=== PATIENT | female | born 1950 | race Caucasian/White ===

== ENCOUNTER → 2016-09-14 | Outpatient (CLI) | payer MEDICARE, OTHER ==
[~2016-09-14] MED LIST: (NONE)2.5 MG PO; ACID REDUCER20 MG PO; ALBUTEROL17 GM INH; ALPRAZOLAM0.25 MG PO; ALPRAZOLAM0.5 MG PO; ALPRAZOLAM1 MG PO; AMITIZA24 MCG PO; BIOTIN5 M2 PO; BREO ELLIPTA 11 EACH INH; CALCIUM 1,0001 EACH PO; DURAGESIC25 MCG EXT; FERROUS SULFATE PO; FISH OIL 1,2001 EAC3 PO; FOLIC ACID PO; GARCINIA CAMBO1 EACH PO; GNP B-COMPLEX1 EACH PO; HCTZ LISINOPRIL PO; HYDROCODON-ACE1 EAC5 PO; HYDROCODON-ACE1 EAC9 PO; HYDROMORPHONE ER8 MG PO; IMODIUM2 MG PO; IRON325 ( 65 ) PO; IRON325 ( 651 PO; LASIX PO; LASIX20 MG PO; LETROZOLE2.5 MG PO; LISINOPRIL-HCTZ1 T21 PO; LOMOTIL WHITE2.5 M1 PO; MAXILIFE RICE 51 CAP PO; METFORMIN PO; NEURONTIN800 MG PO; OMEPRAZOLE20 M1 PO; ONDANSETRON ODT4 MG PO; OXYCODON HCL-1 UDTA1 PO; PEPCID AC20 M2 PO; PHENERGAN25 M1 PO; PLAQUENIL200 MG PO; PREDNISONE PO; PREDNISONE10 M1; PREDNISONE2.5 MG PO; ROBAXIN PO; SPIRONOLACTONE50 MG PO; TRAZODONE HCL100 MG PO; VITAL-D RX TABL1 TAB PO; VITAMIN C500 M1 PO; VITAMIN D35000 UNI1 PO; VITAMIN E400 UNI4 PO; ZANAFLEX PO; ZANAFLEX4 M1 PO; ZOFRAN8 MG PO; ZOLOFT50 MG PO
--- NOTE | ~2016-09-14 | CT55 ---
[facility] A Service of [facility] & [facility] RADIOLOGY TEXT RESULTS PATIENT: MARIE ALEXANDRE LOCATION: CCAT : 49 UNIT #: [id number] AGE: [address]: Neil Butcher MD SEX: F ORDER DR: [id number] [facility] [address] [place], [place] [address] [id number] O MR#: [id number] Acc #: [id number] NAME: MARIE ALEXANDRE : 1950 SEX: F STUDY DATE/TIME: 09/14/2016 15:48 UNIT: CCAT ROOM: STUDY DESCRIPTION: CT Chest W Con Attending Physician: Neil Butcher M.D. Referring Physician: Neil Butcher M.D. Ordering Physician: Neil Butcher M.D. Primary Care Physician: Carlos Ruiz M.D. MEDICAL IMAGING REPORT This report is preliminary unless electronic signature is present EXAM CT of the chest with IV contrast media HISTORY Left breast cancer. Known metastatic disease. Observation and followup of a malignant process. TECHNIQUE Transaxial imaging of the chest was performed with IV contrast media. This CT exam was performed with one or more of the following radiation dose reduction techniques: automatic exposure control, adjustment of mA and/or kV according to patient size, and iterative reconstruction. COMPARISON Last study of 01/10/2016 FINDINGS Scans through the lungs show a 9.0 mm right upper lobe nodule, unchanged. Peripheral left upper lobe nodule measures 6.0 mm compared with 4.0 mm on the last study. The lingular nodule measures 7.0 mm, unchanged. The nodule in the left costophrenic sulcus measures approximately 8.0 mm. It appears slightly larger than it did on the last study. Scans through the mediastinum show a right infrahilar node measuring 1.7 x 1.2, previously measuring 1.0 x 1.0 cm. The patient has had a left mastectomy. There are hypodense lesions within the liver consistent with metastatic disease. No mass identified in the right breast and there is no lymphadenopathy. Bone windows show postsurgical changes in the left shoulder. There is a malignant lesion in the T9 vertebral body with a compression fracture. Compression is about 10%. No retropulsion is seen. IMPRESSION 1. Postop changes left mastectomy. [facility] A Service of [facility] RADIOLOGY TEXT RESULTS PATIENT: MARIE ALEXANDRE LOCATION: [facility] : 49 UNIT #: [id number] AGE: [address]: Neil Butcher MD SEX: F ORDER DR: 2. Multiple small nodules in the lungs, a few of which have increased slightly in size although the majority are stable. 3. Increasing size right infrahilar node now 1.7 compared with 1.0 cm on the last study 4. Pathologic fracture of T9 with about 10% loss of vertebral body height. 5. Liver metastasis. The largest of which is just under the dome of the right hemidiaphragm. Dictated by... Yandel Barbour M.D. THIS IS AN ELECTRONICALLY VERIFIED REPORT Yandel Barbour M.D. at 09/18/2016 5:10 PM Jocelyn TD: 09/15/2016 08:42 JOB #: [id number] MEDICAL IMAGING REPORT COPY
--- NOTE | ~2016-09-14 | CT2 ---
[facility] A Service of [facility] & [facility] RADIOLOGY TEXT RESULTS PATIENT: MARIE ALEXANDRE LOCATION: CCAT : 49 UNIT #: [id number] AGE: [address]: Neil Butcher MD SEX: F ORDER DR: [id number] [facility] [address] [place], [place] [address] [id number] O MR#: [id number] Acc #: [id number] NAME: MARIE ALEXANDRE : 1950 SEX: F STUDY DATE/TIME: 09/14/2016 14:40 UNIT: CCAT ROOM: STUDY DESCRIPTION: CT Abd and Pelv W Cont Attending Physician: Neil Butcher M.D. Referring Physician: Neil Butcher M.D. Ordering Physician: Neil Butcher M.D. Primary Care Physician: Carlos Ruiz M.D. MEDICAL IMAGING REPORT This report is preliminary unless electronic signature is present EXAM CT of the abdomen and pelvis with IV contrast media 09/14/2016 HISTORY Breast cancer, left breast. Metastatic disease. Followup and observation of a malignant process. TECHNIQUE Axial imaging of the abdomen and pelvis was obtained with IV contrast media. This CT exam was performed with one or more of the following radiation dose reduction techniques: automatic exposure control, adjustment of mA and/or kV according to patient size, and iterative reconstruction. COMPARISON STUDIES Scan is directly compared to the studies of December 2015. FINDINGS There is a low-density mass identified within the right lobe of the liver measuring at least 3.2 x 3.1 cm. High under the right hemidiaphragm there is a 5.6 cm hypodense mass present. There is also some low density seen more peripherally associated with some capsular retraction. The significance of this finding is unclear. The low-density area certainly has increased in size significantly since the last exam. There are gallstones in the gallbladder. Pancreas is atrophic. Adrenal glands are not enlarged. There is splenomegaly. The patient has no evidence of gastric wall thickening. There is a small cyst arising peripherally from the right kidney. No dilated or thickened loops of bowel are identified. There is extensive sigmoid diverticulosis without diverticulitis. Uterus is normal in size. There are no adnexal masses or fluid collections. Advanced degenerative changes are present in the lumbar spine. There is a sclerotic lesion in the L3 vertebral body measuring about 8 mm in STS. [facility] A Service of [facility] & [facility] RADIOLOGY TEXT RESULTS PATIENT: MARIE ALEXANDRE [facility] UNIT #: [id number] AGE: [address]: Neil Butcher MD SEX: F ORDER DR: shelly. On the uppermost images there appears to be a destructive lesion involving the T9 vertebral body as well. CONCLUSION 1. Development of metastatic disease within the liver. The largest lesion high under the right hemidiaphragm measuring 5.6 cm. The second lesion is seen inferiorly measuring 3.2 x 3.1 cm. There is a third area of hypodensity that is associated with capsular retraction which could in fact represent a treated metastasis. 2. Cholelithiasis. 3. Advanced multilevel degenerative disc disease. 4. Sclerotic lesion measuring 8 mm in the L3 vertebral body likely a metastasis. Additionally there appears to be a metastatic focus in the T7 vertebral body at the margin of the film. 5. Extensive diverticulosis. Dictated by... Yandel Barbour M.D. THIS IS AN ELECTRONICALLY VERIFIED REPORT Yandel Barbour M.D. at 09/18/2016 5:10 PM ELIEL/janie TD: 09/15/2016 08:30 JOB #: [id number] MEDICAL IMAGING REPORT COPY
[2016-09-14 15:20] LABS: POC - CREATININE 1.05 mg/dL (0.44-1.03)
== END | disposition home or self-care (01) ==
LOC: CCAT 14:27
PROVIDERS: Internal Medicine Hematology & Oncology
DX: C79.51 Secondary malignant neoplasm of bone (principal); M06.9 Rheumatoid arthritis, unspecified; D70.8 Other neutropenia; C50.412 Malignant neoplasm of upper-outer quadrant of left female breast; K80.20 Calculus of gallbladder without cholecystitis without obstruction; K57.90 Diverticulosis of intestine, part unspecified, without perforation or abscess without bleeding; M51.36 Other intervertebral disc degeneration, lumbar region
CPT/HCPCS: 71260; 74177; 82565; Q9967

== ENCOUNTER → 2016-10-26 | Outpatient (CLI) | payer MEDICARE, OTHER ==
--- NOTE | ~2016-10-26 | CT57 ---
[facility] A Service of [facility] & [facility] RADIOLOGY TEXT RESULTS PATIENT: MARIE ALEXANDRE LOCATION: CCAT : 49 UNIT #: [id number] AGE: [address]: Neil Butcher MD SEX: F ORDER DR: [id number] [facility] [address] [place], [place] [address] [id number] O MR#: [id number] Acc #: [id number] NAME: MARIE ALEXANDRE : 1950 SEX: F STUDY DATE/TIME: 10/26/2016 16:37 UNIT: CCAT ROOM: STUDY DESCRIPTION: CT Chest Wo Cont Attending Physician: Neil Butcher M.D. Referring Physician: Neil Butcher M.D. Ordering Physician: Neil Butcher M.D. Primary Care Physician: Carlos Ruiz M.D. MEDICAL IMAGING REPORT This report is preliminary unless electronic signature is present EXAM CT of the chest. HISTORY Malignant neoplasm of upper outer quadrant of left female breast secondary malignant neoplasm of bone rheumatoid arthritis unspecified other neutropenia bronchial asthma x1 month. Short of air, coughing x1 month lung, liver and spine mets from breast cancer. Possible pneumonia. Hypertension, diabetes. TECHNIQUE This CT exam was performed with one or more of the following radiation dose reduction techniques: automatic control, adjustment of mA and/or kV according to patient size, and iterative reconstruction. FINDINGS CT of the chest performed without administration of intravenous contrast. Comparison 09/14/2016. Study somewhat limited in the absence of intravascular contrast. Patient is noted have diminished renal function with eGFR 45 and creatinine 1.26. Visualized thyroid unremarkable. No axillary adenopathy. Status post left mastectomy. The previously seen left infrahilar node measuring about 1.7 cm x 1.1 cm on prior examination is less conspicuous on current noncontrast enhanced study. Given infrahilar contour, then node is favored to be stable to decreased in size measuring perhaps 1.5 x 1.2 cm in diameter. No indications of new mediastinal or hilar adenopathy. Densely calcified aortopulmonary window nodes unchanged. Heart is normal in size. No pleural effusions. There is a metastatic lesion in the hepatic dome measuring approximately 5.2 cm x 5.1 cm x 2.9 cm. Probably increased in size from prior study when it measured about 4.8 cm x 4.6 cm x 2.4 cm. There appears to be metastatic disease elsewhere in the right hepatic lobe more pronounced than on prior study with a second dominant lesion measuring approximately 3.3 cm in diameter on current study, previously about 2.8 cm. The gallbladder [facility] A Service of [facility] RADIOLOGY TEXT RESULTS PATIENT: MARIE ALEXANDRE LOCATION: [facility] : 49 UNIT #: [id number] AGE: [address]: Neil Butcher MD SEX: F ORDER DR: contains a radiolucent gallstones but otherwise is unremarkable. No biliary ductal dilatation. Spleen, visualized portions of pancreas, adrenal glands, kidneys show partial visualization of isodense 1 cm nodule posterior mid to upper right kidney. Exact etiology unclear. Probably a hyperdense cyst. Best further evaluated with ultrasound. The esophagus, stomach, visualized small bowel and colon unremarkable. PULMONARY PARENCHYMA: The pulmonary parenchyma shows multiple bilateral pulmonary nodules favored to represent metastatic disease. No clearly new nodules. Many of these show no change. There is a right apical nodule which currently measures about 9 mm in diameter, previously 9 mm x 6 mm. It may have increased in size slightly in 1 dimension. There is a 9 mm nodule in the inferior lingular segment previously measured as 7 mm. The lungs show hazy ground-glass densities in the bilateral perihilar and infrahilar regions more conspicuous on the left than the right. This suggests mild bilateral pneumonitis. No areas of dense airspace disease are seen. Followup to resolution is recommended. Patient is status post orthopedic intervention left humerus. Streak artifact from orthopedic fixation screws. Multifocal osseous metastatic disease in spine does not appear significantly changed. Compression deformity T9 vertebral body likely related to underlying metastatic disease, unchanged. Degenerative changes in spine. IMPRESSION 1. Mild hazy ground-glass densities in bilateral perihilar/infrahilar regions more pronounced in the infrahilar regions and greater on the left than right. These are mild in degree and are favored to represent mild pneumonitis. There is no dense airspace disease. No pleural effusion or pneumothorax. 2. Multiple bilateral pulmonary nodules. Favored to be metastatic in nature. No new pulmonary nodules are seen compared to September 14, 2016. A right apical 9 mm nodule may have increased very slightly in 1 dimension compared to prior study. A 9 mm inferior lingular segment nodule may have increased very slightly in size from prior study. 3. No new hepatic metastatic lesions are seen. Preexisting metastatic lesions have increased in size. See bilingual call center representative measurements in body of report. 4. Osseous metastatic disease appears stable. Compression deformity T9 vertebral body stable. No new osseous metastatic lesions are seen. 5. Probably stable to marginally decreased in size right inferior hilar lymph node. No new enlarged lymph nodes are seen. 6. Postoperative changes left mastectomy. See remainder of incidental findings in body of report above. Dictated by... Yandel Awad M.D. [facility]. [facility] A Service of [facility] RADIOLOGY TEXT RESULTS PATIENT: MARIE ALEXANDRE LOCATION: [facility] : 49 UNIT #: [id number] AGE: [address]: Neil Butcher MD SEX: F ORDER DR: THIS IS AN ELECTRONICALLY VERIFIED REPORT Yandel Awad M.D. at 10/31/2016 10:29 AM ZARA/fred TD: 10/26/2016 18:29 JOB #: [id number] MEDICAL IMAGING REPORT Page 1 of 1 COPY
[2016-10-26 17:50] LABS: POC - CREATININE 1.26 mg/dL (0.44-1.03)
== END | disposition home or self-care (01) ==
LOC: CCAT 15:19
PROVIDERS: Internal Medicine Hematology & Oncology
DX: C50.412 Malignant neoplasm of upper-outer quadrant of left female breast (principal); C79.51 Secondary malignant neoplasm of bone; M06.9 Rheumatoid arthritis, unspecified; D70.8 Other neutropenia; R91.8 Other nonspecific abnormal finding of lung field; C78.7 Secondary malignant neoplasm of liver and intrahepatic bile duct; Z90.12 Acquired absence of left breast and nipple
CPT/HCPCS: 71250; 82565

== ENCOUNTER 2017-01-08 15:26 | Inpatient (IN) | payer MEDICARE, OTHER ==
--- NOTE | ~2017-01-08 | CR72 ---
[facility] A Service of [facility] & [facility] RADIOLOGY TEXT RESULTS PATIENT: MARIE ALEXANDRE LOCATION: [facility] 317- : [birth year] UNIT #: [id number] AGE: [address]: Neil Butcher MD SEX: F ORDER DR: [id number] [facility] [address] [place], [place] [address] [id number] I MR#: [id number] Acc #: [id number] NAME: MARIE ALEXANDRE. : 1950 SEX: F STUDY DATE/TIME: 01/11/2017 12:58 UNIT: A U ROOM: [facility] STUDY DESCRIPTION: CR Chest Single View Portable Attending Physician: Neil Butcher M.D. Referring Physician: Neil Butcher M.D. Ordering Physician: Venkat Brown M.D. Primary Care Physician: Carlos Ruiz M.D. MEDICAL IMAGING REPORT This report is preliminary unless electronic signature is present EXAM Chest portable, 01/11/2017 12:58 hours HISTORY 66-year-old with history of breast cancer, postop PleurX catheter insertion today. COMPARISON 01/11/2017 at 07:17 hours FINDINGS Single portable upright view of the chest demonstrates lower lung volumes than on the earlier film. The heart size is enlarged but felt unchanged. There is perihilar and basilar vascular crowding. There appears to be a medial pneumothorax on the right. It is difficult to discriminate a percutaneous catheter but there may be a faintly seen percutaneous drain in the medial right hemithorax with tip terminating in the right superior paramediastinal region. No definite residual pleural fluid. IMPRESSION It appears there is decrease in right pleural fluid. There is lucency in the right paramediastinal region and the right medial cardiophrenic angle region which could represent a small pneumothorax. It is difficult to clearly define a percutaneous drain or catheter. There are ECG leads coiled over the chest. Question if faintly seen vertically oriented tube medially with tip terminating in the right superior paramediastinal region. Dictated by... Jovana M. Claudia, M.D. THIS IS AN ELECTRONICALLY VERIFIED REPORT Jovana Taylor M.D. at 01/12/2017 9:23 AM ARSHM/mindy [facility]. [facility] A Service of [facility] RADIOLOGY TEXT RESULTS PATIENT: MARIE ALEXANDRE LOCATION: [facility] 317-01 : [birth year] UNIT #: [id number] AGE: [address]: Neil Butcher MD SEX: F ORDER DR: TD: 01/11/2017 14:44 JOB #: [id number] MEDICAL IMAGING REPORT Page 1 of 1 COPY
--- NOTE | ~2017-01-08 | HP ---
Unit #: [id number] #: [id number] Patient: MARIE CHRISTY [id number] [address] [place], [place] [address] [id number] I MR#: [id number] NAME: MARIE CHRISTY. ROOM: 317 Age: 66 Sex: F Admission Date: 01/10/2017 : 1950 Attending Physician: Neil Butcher M.D. Referring Physician: Neil Butcher M.D. Primary Care Physician: Carlos Ruiz M.D. HISTORY AND PHYSICAL CHIEF COMPLAINT Admitted from the office with shortness of breathing. HISTORY OF PRESENT ILLNESS Miss Marie Christy is 66 years old with a history of metastatic breast cancer. Her cousin called me up to say that Miss Christy was having great difficulty in breathing and felt that she would even from inability to get her breath. She was asked to come to the office to be evaluated, which she did. She was also scheduled to receive a Faslodex injection today. Miss Christy tells me the past week she has had progressive shortness of breathing associated with inability to get her breath. She has had no change in cough pattern, no hemoptysis, or any significant change in chest pain. No history of prior blood clots. In the office she was found to be visibly short of breath. The plan is for admission and planned to be admitted. PAST MEDICAL HISTORY 1. Longstanding rheumatoid arthritis. 2. Chronic liver disease with biopsy proven cirrhosis. 3. Hypercholesterolemia. 4. Type 2 diabetes mellitus. 5. Breast cancer diagnosed 05/26/2013 when she underwent a left modified radical mastectomy with reconstruction at [facility]. Pathology revealed invasive ductal carcinoma grade III with major tumor measuring 3.7 cm. One out of five axillary lymph nodes was positive with metastatic carcinoma. ER was 94% positive. PA was 27% positive. Ki-67 was 29%. HER2 negative. She was staged pathologic, was a PT2, PN1 stage IIB. Postop course was complicated by wound healing following which she had four cycles of chemotherapy with Taxotere any Cytoxan with adjuvant chemotherapy complicated by neutropenia. She thereafter was changed to tamoxifen followed by Arimidex. On 09/07/2014 workup of back pain revealed a large bony metastasis measuring 6.5 cm in the sacrum which was treated with radiation therapy followed by initiation of Faslodex and Xgeva and with subsequent progressive disease stage II . PAST SURGICAL HISTORY Mastectomy as discussed. FAMILY HISTORY Notable for type 2 diabetes, atherosclerotic heart disease and hypertension. Unit #: [id number] #: [id number] Patient: MARIE CHRISTY SOCIAL HISTORY Quit smoking multiple years ago, does not drink any alcohol, she is single, . She has one son. REVIEW OF SYSTEMS Fourteen-point review of systems was taken: CONSTITUTIONAL: Fatigue, weakness. EYES: Negative. EARS/NOSE/MOUTH/THROAT: Negative. CARDIOVASCULAR: Negative. RESPIRATORY: As discussed. GASTROINTESTINAL: Negative. GENITOURINARY: Negative. NEUROLOGIC: Negative. MUSCULOSKELETAL: Negative. SKIN: Negative. PHYSICAL EXAMINATION GENERAL APPEARANCE: Elderly woman who appears in moderate distress secondary to difficulty breathing. She is awake, alert and oriented x3. VITAL SIGNS: Pulse rate is 114, pulse ox 95, blood pressure 119/64, temperature is 37.2, weight is 107.8 kg with a BMI of 40.8. HEENT: Exam shows pupils are equal, react well to light. Mucous membranes slightly dry. Mild pallor. No icterus. NECK: No adenopathy, JVD or thyromegaly. CARDIOVASCULAR SYSTEM: First and second heart sounds are heard with mild tachycardia. LUNGS: Chest expansion is symmetric. Scattered wheezes. ABDOMEN: Soft, nontender. Bowel sounds are present. No organomegaly. EXTREMITIES: Warm with trace edema. Pulses are well fed. NEUROLOGIC: She is awake, alert and oriented x3 without any focal findings. SKIN: Negative. PSYCHIATRIC: Normal affect. MUSCULOSKELETAL: Negative. DIAGNOSTIC STUDIES LABORATORY: Labs pending. ASSESSMENT AND PLAN Miss Marie Christy is 66 years old with a history of metastatic breast cancer, who will be admitted to observation telemetry for shortness of breathing. Given her obesity and metastatic breast cancer acute pulmonary embolism is a possibility and will plan to get a CT scan of the chest to be done without contrast as well as a V/Q scan in view of chronic kidney disease stage 3 which will not permit administer contrast. Will pretreat with prophylactic dose of Lovenox currently while awaiting the results of the V/Q scan. Will consult Dr. Kip Moreno of pulmonary to evaluate her shortness of breathing. In addition she may have sleep apnea which may require to be treated. She will be started on oxygen and nebulized bronchodilators as well as get a BNP, procalcitonin level and based up on the CT scans will plan to start on IV antibiotics for exacerbation of COPD. Plans were discussed in detail with Miss Christy. Unit #: [id number] #: [id number] Patient: MARIE CHRISTY Dictated by Dilshad Larsen/emily TD: 01/11/2017 21:42 JOB #: [id number] HISTORY AND PHYSICAL Page 1 of 1 X Neil Butcher MD X HISTORY AND PHYSICAL
--- NOTE | ~2017-01-08 | CO ---
Unit #: [id number] #: [id number] Patient: MARIE ALEXANDRE [id number] [address] [place], [place] [address] [id number] I MR#: [id number] NAME: MARIE ALEXANDRE ROOM: [facility] Age: 66 Sex: F Admission Date: 01/08/2017 : 1950 Attending Physician: Neil Butcher M.D. Primary Care Physician: Carlos Ruiz M.D. Consultation Date: 01/09/2017 CONSULTATION REPORT REASON FOR CONSULTATION Elevated heart rate. 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 She denies ever having a myocardial infarction or history of a cardiac catheterization. The patient does have hypertension, hyperlipidemia, GERD, depression, and degenerative disk disease. In 2012, she was diagnosed with breast cancer, now she has mets to the liver, lungs, and bone. Her last radiation was one month ago. She is a nonsmoker. Patient presented to [facility] with complaints of shortness of air on exertion. She denies any history of chest pain. She is round to have an elevated D-dimer and ultimately a right pleural effusion. Oncology is following and has ordered a thoracentesis. Cardiology has been consulted for heart rate 90s to 120s. EKG shows sinus tachycardia. Again, patient denies any chest pain. PAST MEDICAL HISTORY 1. Primary breast cancer diagnosed in 2012, now with metastasis to the liver, lungs, and bone with last radiation one month ago. 2. Hypertension. 3. Hyperlipidemia. 4. GERD. 5. Depression. 6. Degenerative disk disease. 7. Spinal stenosis. 8. Nonsmoker. ALLERGIES Codeine, naproxen, atorvastatin. HOME MEDICATIONS 1. Letrozole 2.5 mg p.o. daily. 2. Trazodone 100 mg p.o. at bedtime. 3. Pepcid AC 20 mg p.o. daily. 4. Zoloft 100 mg p.o. daily. 5. Neurontin 800 mg p.o. b.i.d. 6. Omeprazole 20 mg p.o. b.i.d. 7. Zofran 8 mg p.o. three times daily p.r.n. 8. Spironolactone 50 mg p.o. daily. 9. Prednisone 2.5 mg p.o. at bedtime. 10. Zanaflex 4 mg p.o. three times daily. 11. Lasix 20 mg p.o. daily. 12. Xanax 0.5 mg p.o. three times daily. Unit #: [id number] #: [id number] Patient: MARIE ALEXANDRE 13. Hydrocodone/acetaminophen 10/325 mg one tab p.o. every six hours. FAMILY HISTORY Patient states that her father had a myocardial infarction and history of CABG. SOCIAL HISTORY Patient states that she did quit smoking approximately 30 years ago. She denies any alcohol or illicit drug abuse. REVIEW OF SYSTEMS A 10-point review of systems has been done and is considered otherwise negative unless indicated in the HPI. PHYSICAL EXAMINATION GENERAL: Patient is awake and alert. VITAL SIGNS: Temperature is 98.2, heart rate 73, respirations 16, blood pressure 92/54, and she is oxygenating 97%. HEENT: Head is atraumatic, normocephalic. Pupils equal, round, and reactive to light. Extraocular movements are intact. No drainage from ears or nares. NECK: Supple. Trachea is midline. No thyromegaly or lymphadenopathy is appreciated. CHEST: Lungs are diminished bilaterally with crackles on the right. CARDIOVASCULAR: S1, S2. Regular rate and rhythm. No murmurs, rubs, or gallops are appreciated. ABDOMEN: Soft, nontender, nondistended. Bowel sounds are positive all four quadrants. SKIN: Appears to be warm, dry, intact without any unusual rashes or lesions. EXTREMITIES: No clubbing or cyanosis. She does have mild bilateral lower extremity edema. NEUROLOGIC: Patient is alert and oriented x3. She is pleasant, conversant. No focal deficits. DIAGNOSTIC STUDIES LABORATORY: White blood cells 1.2, hemoglobin 8.9, hematocrit 27.4, platelets 125,000. Sodium 137, potassium 3.9, chloride 101, CO2 of 28, BUN 11, creatinine 1, glucose 168. IMAGING: V/Q scan is pending. CT of the chest without contrast is pending. Chest x-ray shows right pleural effusion. CARDIOVASCULAR: Telemetry strips show findings consistent with sinus tachycardia. ASSESSMENT 1. Sinus tachycardia. 2. Breast cancer with metastases. 3. Hypertension. 4. Hyperlipidemia. 5. Gastroesophageal reflux disease. 6. Depression. 7. Reformed tobaccoism. Unit #: [id number] #: [id number] Patient: MARIE ALEXANDRE PLAN At this time, will obtain an EKG now. I have discussed with Dr. Sahu and will check a 2D echocardiogram, BMP, magnesium, TSH, troponin, lipid panel in the morning. The patient is to have a thoracentesis and we will follow along. Dictated by... Dara Barry A.P.R.N. for Gladys Sahu M.D. AM/telma TD: 01/09/2017 12:31 JOB #: [id number] CONSULTATION REPORT Page 1 of 1 X Dara Barry [employer] X CONSULTATION REPORT
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
--- NOTE | ~2017-01-08 | CO ---
Unit #: [id number] #: [id number] Patient: MARIE ALEXANDRE [id number] [address] [place], [place] [address] [id number] I MR#: [id number] NAME: MARIE ALEXANDRE. ROOM: [facility] Age: 66 Sex: F Admission Date: 01/10/2017 : 1950 Attending Physician: Neil Butcher M.D. Primary Care Physician: Carlos Ruiz M.D. Consultation Date: 01/10/2017 CONSULTATION REPORT REASON FOR CONSULTATION Concerning a malignant right pleural effusion. HISTORY OF PRESENT ILLNESS The patient is a 66-year-old white female, who was diagnosed of having breast carcinoma back in 2012. She now has metastatic disease to the bone, liver, and lungs. The patient presented to [place] on 01/09/2017 with increased shortness of breath and was found to have a right pleural effusion. A right thoracentesis was performed with the pathology on the fluid returning as positive for malignant cells. We were consulted at this time to consider placement of a PleurX catheter. PAST MEDICAL HISTORY The patient is allergic to codeine, naproxen, and atorvastatin. She has a history of hypertension, hyperlipidemia, gastroesophageal reflux disease, depression, degenerative disk disease, and spinal stenosis. SOCIAL HISTORY The patient stopped smoking about 30 years ago. She denies any alcohol use or illicit drug abuse. HOME MEDICATIONS Included letrozole 2.5 mg p.o. daily, trazodone 100 mg p.o. q.h.s., Pepcid 20 mg p.o. daily, Zoloft 100 mg p.o. daily, Neurontin 800 mg p.o. b.i.d., omeprazole 20 mg p.o. b.i.d., Zofran 8 mg p.o. t.i.d. p.r.n., spironolactone 50 mg p.o. daily, prednisone 2.5 mg p.o. q.h.s., Zanaflex 4 mg p.o. t.i.d., Lasix 20 mg p.o. daily, Xanax 0.5 mg p.o. t.i.d., [place] 10 mg/325 mg one tablet p.o. q.6 hours p.r.n. for pain. REVIEW OF SYSTEMS Essentially negative except for those things stated in the present illness and past history. PHYSICAL EXAMINATION VITAL SIGNS: The patient's temperature is 98, the pulse is 88, respirations 18, and blood pressure 109/69. GENERAL: The patient is somewhat hoarse. HEAD, EARS, EYES, NOSE, AND THROAT: Normocephalic without lesions. The pupils are equally round and reactive to light. Extraocular movements are full. NECK: Supple without adenopathy. LUNGS: Rhonchi and wheeze bilaterally. The patient also has decreased breath sounds at the right base. HEART: Regular rhythm without murmurs. Unit #: [id number] #: [id number] Patient: MARIE ALEXANDRE ABDOMEN: Soft and nontender without masses and with good bowel sounds. EXTREMITIES: The patient has some mild bilateral lower extremity edema. There is no clubbing or cyanosis. NEUROLOGIC: The patient is oriented x3. There are no focal neurologic deficits on exam. IMPRESSION Metastatic breast carcinoma with a malignant right pleural effusion. PLAN Plan to proceed with insertion of a right PleurX catheter in the operating room tomorrow. Dictated by... Dilshad Amado/juanita TD: 01/16/2017 04:22 JOB #: [id number] CONSULTATION REPORT Page 1 of 1 X Venkat Brown MD X CONSULTATION REPORT
--- NOTE | ~2017-01-08 | CT57 ---
[facility] A Service of [facility] & [facility] RADIOLOGY TEXT RESULTS PATIENT: MARIE ALEXANDRE LOCATION: [facility] 317- : [birth year] UNIT #: [id number] AGE: [address]: Neil Butcher MD SEX: F ORDER DR: [id number] [facility] [address] [facility]. [place], [place] [address] [id number] I MR#: [id number] Acc #: [id number] NAME: MARIE ALEXANDRE : 1950 SEX: F STUDY DATE/TIME: 01/08/2017 22:52 UNIT: A U ROOM: [facility] STUDY DESCRIPTION: CT Chest Wo Cont Attending Physician: Neil Butcher M.D. Referring Physician: Neil Butcher M.D. Ordering Physician: Neil Butcher M.D. Primary Care Physician: Carlos Ruiz M.D. MEDICAL IMAGING REPORT This report is preliminary unless electronic signature is present EXAM CT scan of the chest without contrast HISTORY Shortness of air, chest pain, bilateral leg pain and swelling for one week. COMPARISON 10/26/2016 TECHNIQUE Axial 5.0 mm images were obtained through the chest without IV contrast. This CT exam was performed with one or more of the following radiation dose reduction techniques: automatic exposure control, adjustment of mA and/or kV according to patient size, and iterative reconstruction. FINDINGS There is a stable 6.0 mm noncalcified nodule in the left lower lobe on image 22. The nodule was not present in 2014 and it was present in December 2015 but has increased slightly in size. It measured 4.0 mm on that old exam. There are patchy infiltrates in the left upper lobe and lower lobe. There are at least three areas measuring up to 15.0 mm in diameter which are new from the prior study from three months ago and therefore they are infectious or inflammatory. There is a moderate right effusion with right infrahilar infiltrate and right base atelectasis. The aorta is normal in size and there is no mediastinal or hilar adenopathy identified. The visualized portions of upper abdomen show a large low density mass in the right lobe of the liver measuring 6.0 cm and there is another more inferiorly in the right lobe of the liver measuring 3.6 cm in diameter. These are slightly larger than on the prior study. The rest of the upper abdominal images are unremarkable except for small renal cysts. There are STS. [facility] A Service of [facility] & [facility] RADIOLOGY TEXT RESULTS PATIENT: MARIE ALEXANDRE LOCATION: [facility] 317-01 : [birth year] UNIT #: [id number] AGE: [address]: Neil Butcher MD SEX: F ORDER DR: degenerative changes in the spine. IMPRESSION 1. I presume this patient has some type known malignancy. There are hepatic masses that are slightly increased in size from 10/26/2016. The largest one is 6.0 cm in diameter. There are two masses present. 2. There is a small enlarging nodule in the left lower lobe which was not present in 2014 and it was seen in 2016 and it is now about 6.0-7.0 mm in diameter. 3. Moderate right pleural effusion with right base atelectasis. There is dense infiltrate surrounding the right infrahilar structures. Dictated by... Andre Mosley M.D. THIS IS AN ELECTRONICALLY VERIFIED REPORT Andre Mosley M.D. at 01/09/2017 1:43 PM Flo TD: 01/09/2017 12:53 JOB #: [id number] MEDICAL IMAGING REPORT Page 1 of 1 COPY
--- NOTE | ~2017-01-08 | CR63 ---
[facility] A Service of [facility] & [facility] RADIOLOGY TEXT RESULTS PATIENT: MARIE ALXEANDRE LOCATION: [facility] 317- : [birth year] UNIT #: [id number] AGE: [address]: Neil Butcher MD SEX: F ORDER DR: [id number] [facility] [address] [place], [place] [address] [id number] I MR#: [id number] Acc #: [id number] NAME: MARIE ALEXANDRE : 1950 SEX: F STUDY DATE/TIME: 01/11/2017 7:17 UNIT: [address] ROOM: [facility] STUDY DESCRIPTION: CR Chest 2 View Attending Physician: Neil Butcher M.D. Referring Physician: Neil Butcher M.D. Ordering Physician: Neil Butcher M.D. Primary Care Physician: Carlos Ruiz M.D. MEDICAL IMAGING REPORT This report is preliminary unless electronic signature is present EXAM PA and lateral chest INDICATION Shortness of breath today. COMPARISON Earlier today FINDINGS Stable small right-sided pleural effusion. Stable interstitial opacities. Heart size stable. Degenerative changes thoracic spine. IMPRESSION No significant change in the appearance of the chest. Dictated by... Yasir Freitas M.D. THIS IS AN ELECTRONICALLY VERIFIED REPORT Yasir Freitas M.D. at 01/11/2017 12:25 PM CAMILO/mindy TD: 01/11/2017 08:51 JOB #: [id number] MEDICAL IMAGING REPORT Page 1 of 1 COPY
--- NOTE | ~2017-01-08 | NM69 ---
[facility] A Service of [facility] & [facility] RADIOLOGY TEXT RESULTS PATIENT: MARIE ALEXANDRE LOCATION: [facility] 317- : [birth year] UNIT #: [id number] AGE: [address]: Neil Butcher MD SEX: F ORDER DR: [id number] [facility] [address] [facility]. [place], [place] [address] [id number] I MR#: [id number] Acc #: [id number] NAME: MARIE ALEXANDRE : 1950 SEX: F STUDY DATE/TIME: 01/08/2017 21:40 UNIT: [address] ROOM: [facility] STUDY DESCRIPTION: NM Pulm Vent and Perf Attending Physician: Neil Butcher M.D. Referring Physician: Neil Butcher M.D. Ordering Physician: Neil Butcher M.D. Primary Care Physician: Carlos Ruiz M.D. MEDICAL IMAGING REPORT This report is preliminary unless electronic signature is present EXAM Ventilation-perfusion scan. Respiratory failure. Elevated D-dimer. Central chest pain. Bilateral lower extremity swelling. Congestive heart failure. TECHNIQUE 30.2 mCi Tc-99m DTPA was inhaled for the ventilation portion of the examination. FINDINGS There is relatively poor ventilation of the right lung compared to the left lung. There is some central clumping of radiotracer. There is some heterogeneous uptake within the left lung as well consistent with COPD. 5.4 mCi technetium 99 MAA, chest IV protocol for the perfusion portion of the examination. There is some asymmetric distribution of radiotracer into the left lung compared to the right lung. This is improved compared to the ventilation images. No ventilation-perfusion mismatches. IMPRESSION Low probability ventilation-perfusion scan for pulmonary embolus. Dictated by... Chandana Queen M.D. THIS IS AN ELECTRONICALLY VERIFIED REPORT Chandana Queen M.D. at 01/09/2017 3:10 PM MCKAYLA/mala TD: 01/09/2017 12:51 [facility] A Service of [facility] & [facility] RADIOLOGY TEXT RESULTS PATIENT: MARIE ALEXANDRE LOCATION: [facility] 317-01 : [birth year] UNIT #: [id number] AGE: [address]: Neil Butcher MD SEX: F ORDER DR: JOB #: [id number] MEDICAL IMAGING REPORT Page 1 of 1 COPY
--- NOTE | ~2017-01-08 | XA203 ---
[facility] A Service of [facility] & [facility] RADIOLOGY TEXT RESULTS PATIENT: MARIE ALEXANDRE LOCATION: [facility] 317- : [birth year] UNIT #: [id number] AGE: [address]: Neil Butcher MD SEX: F ORDER DR: [id number] [place] [id number] [facility]. [place], [place] [address] [id number] I MR#: [id number] Acc #: [id number] NAME: MARIE ALEXANDRE. : 1950 SEX: F STUDY DATE/TIME: 01/09/2017 10:43 UNIT: [address] ROOM: [facility] STUDY DESCRIPTION: XA Thoracentesis Attending Physician: Neil Butcher M.D. Referring Physician: Neil Butcher M.D. Ordering Physician: Neil Butcher M.D. Primary Care Physician: Carlos Ruiz M.D. MEDICAL IMAGING REPORT This report is preliminary unless electronic signature is present EXAM Ultrasound-guided right thoracentesis INDICATION Right pleural effusion. The risks, benefits and alternative to the procedure were discussed with the patient and informed consent was obtained. In the procedure room a time-out was performed confirming correct patient and procedure. All elements of maximum sterile-barrier technique utilized according to guidelines appropriate for the procedure. TECHNIQUE/FINDINGS Ultrasound of the right pleural space was performed demonstrating a large right pleural effusion. The overlying skin was prepped and draped in the usual sterile fashion. 1% lidocaine was utilized to anesthetize the skin and underlying subcutaneous tissues. Next, under ultrasound guidance, a 5-Yoruba Yueh catheter was inserted into the pleural space on the right and 1,500 mL of fluid was removed and sample was sent to the lab. Needle was removed and a sterile dressing was applied. No immediate complications. IMPRESSION Technically successful ultrasound-guided right thoracentesis. Dictated by... Yasir Freitas M.D. THIS IS AN ELECTRONICALLY VERIFIED REPORT Yasir Freitas M.D. at 01/11/2017 12:25 PM CAMILO/mindy TD: 01/10/2017 09:08 [facility] A Service of [facility] & [facility] RADIOLOGY TEXT RESULTS PATIENT: MARIE ALEXANDRE LOCATION: [facility] 317-01 : [birth year] UNIT #: [id number] AGE: [address]: Neil Butcher MD SEX: F ORDER DR: SP #: [id number] MEDICAL IMAGING REPORT Page 1 of 1 COPY
--- NOTE | ~2017-01-08 | CR72 ---
[facility] A Service of [facility] RADIOLOGY TEXT RESULTS PATIENT: MARIE ALEXANDRE LOCATION: [facility] 317-01 : [birth year] UNIT #: [id number] AGE: [address]: Neil Butcher MD SEX: F ORDER DR: [id number] [place] [id number] [facility]. [place], [place] [address] [id number] I MR#: [id number] Acc #: [id number] NAME: MARIE ALEXANDRE : 1950 SEX: F STUDY DATE/TIME: 01/11/2017 5:41 UNIT: [address] ROOM: [facility] STUDY DESCRIPTION: CR Chest Single View Portable Attending Physician: Neil Butcher M.D. Referring Physician: Neil Butcher M.D. Ordering Physician: Venkat Brown M.D. Primary Care Physician: Carlos Ruiz M.D. MEDICAL IMAGING REPORT This report is preliminary unless electronic signature is present EXAM Frontal chest 01/11/2017 INDICATION Status post chest tube placement. Shortness of air. Breast cancer diagnosed in 2012. Left-sided chest pain status post thoracentesis. Left mastectomy. Hypertension and diabetes. TECHNIQUE Frontal chest was performed. COMPARISON 01/09/2017. FINDINGS Postop changes left shoulder. Cardiac silhouette borderline in size and stable. Lung volumes are low. Generalized interstitial prominence throughout the right lung persists and there are more confluent interstitial and faint alveolar opacities in the right lung base stable to minimally worse compared to the prior study. Trace to small right-sided effusion. No pneumothorax. IMPRESSION Trace to small right-sided effusion. Minimal worsening of opacities in the right lung base. Otherwise no significant change. Dictated by... Yasir Gonzales M.D. THIS IS AN ELECTRONICALLY VERIFIED REPORT Yasir Gonzales M.D. at 01/11/2017 4:00 PM [facility] A Service of [facility] RADIOLOGY TEXT RESULTS PATIENT: MARIE ALEXANDRE LOCATION: [facility] 317-01 : [birth year] UNIT #: [id number] AGE: [address]: Neil Butcher MD SEX: F ORDER DR: NICK/kulwant TD: 01/11/2017 06:50 JOB #: [id number] MEDICAL IMAGING REPORT Page 1 of 1 COPY
--- NOTE | ~2017-01-08 | DS ---
Unit #: [id number] #: [id number] Patient: MARIE CHRISTY [id number] [address] [place], [place] [address] [id number] I MR#: [id number] NAME: MARIE CHRISTY. ROOM: 317 Age: 66 Sex: F Admission Date: 01/09/2017 : 1950 Discharge Date: 01/12/2017 Attending Physician: Neil Butcher M.D. Referring Physician: Neil Butcher M.D. Primary Care Physician: Carlos Ruiz M.D. DISCHARGE SUMMARY PRINCIPAL DIAGNOSES 1. Malignant right pleural effusion. 2. Metastatic breast cancer. 3. Chronic obstructive pulmonary disease with exacerbation. 4. Rheumatoid arthritis. 5. Morbid obesity. 6. Probable sleep apnea. 7. Supraventricular tachycardia. 8. Depression. DISCHARGE MEDICATIONS Please see the medication reconciliation sheet for details. HOSPITAL COURSE AND COMPLICATIONS In brief, Ms. Marie Christy was admitted to the hospital with marked shortness of breath. Acute embolism was a consideration, and she underwent a VQ scan, which showed low probability PE, as well as CT scan of the chest, which showed moderate right pleural effusion. She was seen by Dr. Moreno of pulmonary and started on IV steroids with significant improvement in wheezing and shortness of breath. In view of her right pleural effusion, she underwent thoracentesis, both therapeutic and diagnostic, with removal of 1,500 mL of fluid. Fluid cytology was positive for metastatic breast cancer. Consultation was obtained by Dr. Venkat Brown, and she underwent a Pleurx catheter placement on 01/11/2017 with good relief. The patient was instructed on the Pleurx catheter management (1) visiting nurses services at home. Extensive discussions were held with both the patient and the patient's son about her prognosis, changes in plans from (2) to palliative chemotherapy, need for a MediPort placement, which will be done as an outpatient with any plans to initiate chemotherapy as an outpatient in the next 2 weeks. We also discussed about prognosis, life expectancy and other services, such as Hospice services. Dictated by... Dilshad Larsen/santy FLEMING: 01/12/2017 12:39 TD: 01/16/2017 08:06 JOB #: [id number] Unit #: [id number] #: [id number] Patient: MARIE CRHISTY DISCHARGE SUMMARY Page 1 of 1 X Neil Butcher MD X DISCHARGE SUMMARY
--- NOTE | ~2017-01-08 | OR ---
Unit #: [id number] #: [id number] Patient: MARIE ALEXANDRE [id number] [address] [place], [place] [address] [id number] MR#: [id number] NAME: MARIE ALEXANDRE. ROOM: [facility] Date of Procedure: 01/11/2017 Admission Date: 01/10/2017 Surgeon: Venkat Brown M.D. : 1950 Attending Physician: Neil Butcher M.D. Referring Physician: Neil Butcher M.D. Primary Care Physician: Carlos Ruiz M.D. OPERATIVE REPORT PREOPERATIVE DIAGNOSIS Metastatic breast carcinoma with a malignant right pleural effusion. POSTOPERATIVE DIAGNOSIS Metastatic breast carcinoma with a malignant right pleural effusion. PROCEDURE PERFORMED Insertion of a right PleurX catheter. ANESTHESIA MAC plus local 1% Xylocaine. ESTIMATED BLOOD LOSS About 5 mL. COMPLICATIONS None. DESCRIPTION OF PROCEDURE The patient was taken to the operating room and placed on the operating room table in a left lateral decubitus position. The patient was secured in place on the operating room table using a beanbag. The right arm was supported anteriorly on arm pillows. The right chest was prepped with ChloraPrep and draped in a sterile fashion. After adequate anesthesia had been obtained using local 1% Xylocaine, a small stab wound incision was made in the posterior axillary line at about the seventh intercostal space. The chest was entered at this level with a Jojo clamp. This Jojo clamp was then used to carry the guidewire into the pleural space. The guidewire was clipped to the drapes with a hemostat. A point was then chosen about 8 cm or so anterior and inferior to the previous incision. A small stab wound was made at this site after adequate anesthesia had been obtained using local 1% Xylocaine. The subcutaneous tissue between the two incisions was also anesthetized with 1% Xylocaine. The PleurX catheter was connected to a tunneler and then passed from the anterior incision subcutaneously back to the posterior incision. The PleurX catheter was drawn through the subcutaneous tunnel until the Dacron cuff was sitting about 1 cm from its exit site from the skin. An introducer was passed over the guidewire. The PleurX catheter was then passed into the pleural space per this introducer, which was stripped away. A small posterior incision was closed using 3-0 Vicryl for the subcutaneous tissue and 4-0 subcuticular stitch for the skin. The catheter was secured in place at its exit site from the skin using 3-0 silk suture. Dermabond was Unit #: [id number] #: [id number] Patient: MARIE ALEXANDRE applied to the small posterior incision. The PleurX catheter was then drained with about 650 mL of fernando fluid being removed. A portion of this fluid was sent for cultures. The catheter was capped and then dressed in a sterile fashion. Estimated blood loss in the procedure was about 5 mL. Sponge and needle counts in the operation were correct. The patient tolerated the procedure well and left the operating room in satisfactory condition. Dictated by... Dilshad Amado/juanita TD: 01/12/2017 19:04 JOB #: [id number] OPERATIVE REPORT Page 1 of 1 X Venkat Brown MD X PROCEDURE OPERATIVE NOTE
--- NOTE | ~2017-01-08 | CR63 ---
[facility] A Service of [facility] RADIOLOGY TEXT RESULTS PATIENT: MARIE ALEXANDRE LOCATION: [facility] : [birth year] UNIT #: [id number] AGE: [address]: Neil Butcher MD SEX: F ORDER DR: [id number] [facility] [address]. [place], [place] [address] [id number] I MR#: [id number] Acc #: [id number] NAME: MARIE ALEXANDRE : 1950 SEX: F STUDY DATE/TIME: 01/08/2017 22:21 UNIT: [address] ROOM: [facility] STUDY DESCRIPTION: CR Chest 2 View Attending Physician: Neil Butcher M.D. Referring Physician: Neil Butcher M.D. Ordering Physician: Neil Butcher M.D. Primary Care Physician: Carlos Ruiz M.D. MEDICAL IMAGING REPORT This report is preliminary unless electronic signature is present EXAM PA and lateral chest. INDICATION Shortness of air. Correlate with V/Q scan. Symptoms started today. 01/08. COMPARISON 08/02/2016. FINDINGS A portable view of the chest was obtained. The left lung is clear. There is increased density in the lower right chest suggesting an effusion and right lower lobe infiltrate. There is also mild interstitial prominence in the right upper lobe. There are postoperative changes in the left shoulder. IMPRESSION Probable right moderate effusion with right lower lobe atelectasis or infiltrate and mild interstitial prominence in the right lung as well. The left lung is clear. Dictated by... Andre Mosley M.D. THIS IS AN ELECTRONICALLY VERIFIED REPORT Andre Mosley M.D. at 01/09/2017 1:42 PM FEL/bd TD: 01/09/2017 12:40 JOB #: [id number] [facility] A Service of [facility] RADIOLOGY TEXT RESULTS PATIENT: MARIE ALEXANDRE LOCATION: [facility] [address] : [birth year] UNIT #: [id number] AGE: [address]: Neil Butcher MD SEX: F ORDER DR: MEDICAL IMAGING REPORT Page 1 of 1 COPY
--- NOTE | ~2017-01-08 | CR71 ---
[facility] A Service of [facility] RADIOLOGY TEXT RESULTS PATIENT: MARIE ALEXANDRE LOCATION: [facility] 317- : [birth year] UNIT #: [id number] AGE: [address]: Neil Butcher MD SEX: F ORDER DR: [id number] [facility] [address]. [place], [place] [address] [id number] I MR#: [id number] Acc #: [id number] NAME: MARIE ALEXANDRE : 1950 SEX: F STUDY DATE/TIME: 01/09/2017 11:30 UNIT: [address] ROOM: [facility] STUDY DESCRIPTION: CR Chest Single View Attending Physician: Neil Butcher M.D. Referring Physician: Neil Butcher M.D. Primary Care Physician: Carlos Ruiz M.D. MEDICAL IMAGING REPORT This report is preliminary unless electronic signature is present EXAM Chest, portable, 01/09/2017, 1130 hours. CLINICAL HISTORY Shortness of air with right-sided chest pain. Status post right thoracentesis today. Evaluate for pneumothorax. COMPARISON Chest x-ray and chest CT, 01/08/2017. FINDINGS Single portable upright view demonstrates low lung volumes. There is stable cardiomegaly with marked reduction in the right pleural effusion. There is minimal residual blunting of the right costophrenic sulcus. No pneumothorax is seen. IMPRESSION There is marked reduction in the right pleural effusion on this post thoracentesis film with minimal blunting of the right costophrenic sulcus remaining. There is no pneumothorax. Dictated by... Jovana Taylor M.D. THIS IS AN ELECTRONICALLY VERIFIED REPORT Jovana Taylor M.D. at 01/10/2017 9:34 AM RADHA/kathleen TD: 01/09/2017 17:11 JOB #: [id number] [facility] A Service of [facility] RADIOLOGY TEXT RESULTS PATIENT: MARIE ALEXANDRE LOCATION: [facility] 317-01 : [birth year] UNIT #: [id number] AGE: [address]: Neil Butcher MD SEX: F ORDER DR: MEDICAL IMAGING REPORT Page 1 of 1 COPY
--- NOTE | ~2017-01-08 | BMI ---
[facility] Nutrition Therapy DATE: 01/09/17 Patient: MARIE ALEXANDRE Physician: MEENA Address: [address] [place] [address] Room/Bed: [address] [place] [address], Zip: [place] [address] Admit Date: 01/08/17 Date of : [birth year] Height: 5 3 Weight: 236 107.4 HIGH BMI NOTE: DX: 66 Y.O. FEMALE ADMITTED FOR RESPIRATORY FAILURE ANTHROPOMETRICS: 5'3", WT: 236# (107 KG), BMI: 41.8 DIET: REGULAR RECOMMENDATIONS: 1. RECOMMEND TO CHANGE CURRENT DIET ORDER TO CC+HH TO PROMOTE GRADUAL WEIGHT LOSS TOWARDS HEALTHY BMI (19.0-25.0) OR +/-10%IBW RD WILL F/U PER PROTOCOL Respectfully, RODGER DEAN MS, RD, LD Food and Nutritional Services [facility] cc: client file
--- NOTE | ~2017-01-08 | EKG ---
PATIENT: MARIE ALEXANDRE UNIT #: [id number] Ventricular Rate: 98 BPM Atrial Rate: 98 BPM P-R Interval: 154 ms QRS Duration: 80 ms Q-T Interval: 366 ms QTC Calculation(Bezet): 467 ms P [place]: 45 degrees Calculated R [place]: 9 degrees Calculated T [place]: 32 degrees Diagnosis Line: Normal sinus rhythm Diagnosis Line: Possible Inferior infarct , age undetermined Diagnosis Line: Abnormal ECG Diagnosis Line: When compared with ECG of 02-AUG-2016 22:13, Diagnosis Line: No significant change was found Diagnosis Line: Confirmed by MUSTAPHA BRYANT MD ([id number]) on Diagnosis Line: 01/09/2017 4:26:58 PM INTERPRETING MD: MARY JO
[~2017-01-08 15:26] MED LIST changes: -(NONE)2.5 MG PO; -ACID REDUCER20 MG PO; -ALBUTEROL17 GM INH; -AMITIZA24 MCG PO; -BREO ELLIPTA 11 EACH INH; -LASIX20 MG PO; -LETROZOLE2.5 MG PO; -LOMOTIL WHITE2.5 M1 PO; -METFORMIN PO; -NEURONTIN800 MG PO; -OMEPRAZOLE20 M1 PO; -ONDANSETRON ODT4 MG PO; -PEPCID AC20 M2 PO; -PREDNISONE PO; -PREDNISONE10 M1; -TRAZODONE HCL100 MG PO; -ZANAFLEX PO; -ZANAFLEX4 M1 PO; -ZOFRAN8 MG PO; -ZOLOFT50 MG PO
[2017-01-08 16:35] LABS: HEMATOCRIT 32.8 % (35.0-45.0); HEMOGLOBIN 10.6 gm/dL (12.0-16.0); MEAN CORPUSCULAR HEMOGLOBIN 30.6 PG (28-34); MEAN CORPUSCULAR HGB CONC 32.2 g/dL (30-36); MEAN PLATELET VOLUME 7.6 FL (6.5-11.5); RED BLOOD COUNT 3.46 X10e (3.90-5.30); RED CELL DISTRIBUTION WIDTH 20.9 % (11.0-15.5); WHITE BLOOD COUNT 1.7 X10e3 (4.0-10.5)
[2017-01-08 16:42] LABS: INR 1.1; PARTIAL THROMBOPLASTIN TIME 27.3 SECONDS (23.5-31.3); PROTHROMBIN TIME (PATIENT) 12.3 SECONDS (10.0-11.7)
[2017-01-08 17:05] LABS: ALBUMIN SERUM 3.2 g/dL (3.5-5.0); BILIRUBIN,TOTAL 1.5 mg/dL (0.2-2.0); BUN/CREATININE RATIO 9.09; CALCIUM SERUM 8.9 mg/dL (8.4-10.2); CREATININE SERUM 1.1 mg/dL (0.6-1.4); GLOM FILT RATE Estimated 51.9 mL/min (>60); POTASSIUM 3.8 mmol/L (3.5-5.1); PROTEIN TOTAL SERUM 6.9 g/dL (6.0-8.3)
[2017-01-08 17:17] LABS: PROCALCITONIN 0.13 NG/ML
[2017-01-09 06:44] LABS: HEMATOCRIT 27.4 % (35.0-45.0); HEMOGLOBIN 8.9 gm/dL (12.0-16.0); MEAN CELL VOLUME 94.5 FL (83-96); MEAN CORPUSCULAR HEMOGLOBIN 30.8 PG (28-34); MEAN CORPUSCULAR HGB CONC 32.6 g/dL (30-36); MEAN PLATELET VOLUME 7.5 FL (6.5-11.5); RED BLOOD COUNT 2.9 X10e (3.90-5.30); RED CELL DISTRIBUTION WIDTH 20.3 % (11.0-15.5); WHITE BLOOD COUNT 1.2 X10e3 (4.0-10.5)
[2017-01-09 07:16] LABS: ALBUMIN SERUM 2.8 g/dL (3.5-5.0); CALCIUM SERUM 8.3 mg/dL (8.4-10.2); GLOM FILT RATE Estimated 58.3 mL/min (>60); MAGNESIUM 1.6 mg/dL (1.6-3.0); PHOSPHOROUS 4.5 mg/dL (2.5-4.6); POTASSIUM 3.9 mmol/L (3.5-5.1); PROTEIN TOTAL SERUM 6.1 g/dL (6.0-8.3)
[2017-01-09 12:22] LABS: BF TOTAL NUCLEATED CELL COUNT 327 CMM (0-100); BODY FLUID APPEARANCE HAZY; BODY FLUID RBC <10000 CMM; BODY FLUID SOURCE PLEURAL
[2017-01-09 12:25] LABS: PROTEIN, BODY FLUID 3.9 gm/dL
[2017-01-10 06:41] LABS: CALCIUM SERUM 8.4 mg/dL (8.4-10.2); GLOM FILT RATE Estimated 58.3 mL/min (>60); MAGNESIUM 1.7 mg/dL (1.6-3.0); POTASSIUM 4.4 mmol/L (3.5-5.1)
[2017-01-11 06:11] LABS: HEMATOCRIT 28.4 % (35.0-45.0); HEMOGLOBIN 9.2 gm/dL (12.0-16.0); MEAN CELL VOLUME 93.9 FL (83-96); MEAN CORPUSCULAR HEMOGLOBIN 30.5 PG (28-34); MEAN CORPUSCULAR HGB CONC 32.4 g/dL (30-36); MEAN PLATELET VOLUME 7.7 FL (6.5-11.5); RED BLOOD COUNT 3.02 X10e (3.90-5.30); RED CELL DISTRIBUTION WIDTH 19.4 % (11.0-15.5)
[2017-01-11 06:22] LABS: INR 1.1; PARTIAL THROMBOPLASTIN TIME 26.8 SECONDS (23.5-31.3); PROTHROMBIN TIME (PATIENT) 11.9 SECONDS (10.0-11.7)
[2017-01-11 06:28] LABS: WHITE BLOOD COUNT 3.2 X10e3 (4.0-10.5)
[2017-01-11 06:39] LABS: BUN/CREATININE RATIO 23.33; CREATININE SERUM 0.9 mg/dL (0.6-1.4); GLOM FILT RATE Estimated 66.2 mL/min (>60)
[2017-01-12 05:22] LABS: HEMATOCRIT 30.1 % (35.0-45.0); HEMOGLOBIN 9.7 gm/dL (12.0-16.0); MEAN CELL VOLUME 95.3 FL (83-96); MEAN CORPUSCULAR HEMOGLOBIN 30.6 PG (28-34); MEAN CORPUSCULAR HGB CONC 32.1 g/dL (30-36); MEAN PLATELET VOLUME 8.1 FL (6.5-11.5); RED BLOOD COUNT 3.16 X10e (3.90-5.30); RED CELL DISTRIBUTION WIDTH 19.4 % (11.0-15.5); WHITE BLOOD COUNT 4.8 X10e3 (4.0-10.5)
[2017-01-12 07:02] LABS: BUN/CREATININE RATIO 26.66; CALCIUM SERUM 9.1 mg/dL (8.4-10.2); CREATININE SERUM 1.2 mg/dL (0.6-1.4); GLOM FILT RATE Estimated 46.7 mL/min (>60); POTASSIUM 4.5 mmol/L (3.5-5.1)
[2017-01-12] MEDS ORDERED: PREDNISONE10 M1 (14:17)
[2017-01-12] MEDS ORDERED: BREO ELLIPTA 11 EACH INH (14:20)
[2017-01-18] MEDS ORDERED: LASIX20 MG PO (00:14)
[2017-01-18] MEDS ORDERED: ZANAFLEX4 M1 PO (00:14)
[2017-01-18] MEDS ORDERED: ALPRAZOLAM0.5 MG PO (00:15)
[2017-01-18] MEDS ORDERED: PEPCID AC20 M2 PO (11:16)
[2017-01-18] MEDS ORDERED: TRAZODONE HCL100 MG PO (11:16)
[2017-01-18] MEDS ORDERED: LETROZOLE2.5 MG PO (11:16)
[2017-01-18] MEDS ORDERED: NEURONTIN800 MG PO (11:17)
[2017-01-18] MEDS ORDERED: ZOLOFT50 MG PO (11:17)
[2017-01-18] MEDS ORDERED: OMEPRAZOLE20 M1 PO (11:20)
[2017-01-18] MEDS ORDERED: ONDANSETRON ODT4 MG PO (11:33)
[2017-01-18] MEDS ORDERED: PREDNISONE2.5 MG PO (14:17)
== END 2017-01-12 16:08 | disposition home health service (06) | DRG 181 ==
LOC: C3A PCU 15:26
PROVIDERS: Internal Medicine Cardiovascular Disease; Internal Medicine Hematology & Oncology; Psychiatry & Neurology Neurology; Surgery
PROC: 0W9930Z Drainage of Right Pleural Cavity with Drainage Device, Percutaneous Approach (ICD-10-PCS; principal; 2017-01-10)
PROC: B24BYZZ Ultrasonography of Heart with Aorta using Other Contrast (ICD-10-PCS; 2017-01-10)
PROC: 05H533Z Insertion of Infusion Device into Right Subclavian Vein, Percutaneous Approach (ICD-10-PCS; 2017-01-10)
PROC: B546ZZA Ultrasonography of Right Subclavian Vein, Guidance (ICD-10-PCS; 2017-01-10)
PROC: 0W9900Z Drainage of Right Pleural Cavity with Drainage Device, Open Approach (ICD-10-PCS; 2017-01-11)
DX: C78.02 Secondary malignant neoplasm of left lung (principal); J91.0 Malignant pleural effusion; C78.7 Secondary malignant neoplasm of liver and intrahepatic bile duct; C79.51 Secondary malignant neoplasm of bone; I47.1 Supraventricular tachycardia; J44.1 Chronic obstructive pulmonary disease with (acute) exacerbation; K74.60 Unspecified cirrhosis of liver; Z68.42 Body mass index [BMI] 45.0-49.9, adult; C78.01 Secondary malignant neoplasm of right lung; M06.9 Rheumatoid arthritis, unspecified; Z85.3 Personal history of malignant neoplasm of breast; E78.00 Pure hypercholesterolemia, unspecified; E11.9 Type 2 diabetes mellitus without complications; I10 Essential (primary) hypertension; E78.5 Hyperlipidemia, unspecified; K21.9 Gastro-esophageal reflux disease without esophagitis; F32.9 Major depressive disorder, single episode, unspecified; Z87.891 Personal history of nicotine dependence; D64.9 Anemia, unspecified; M48.00 Spinal stenosis, site unspecified; E66.01 Morbid (severe) obesity due to excess calories
CPT/HCPCS: 71010; 71020; 71250; 78582; 80048; 80053; 80061; 82308; 82947; 83036; 83615; 83735; 83880; 83986; 84100; 84157; 84439; 84443; 84484; 85027; 85379; 85610; 85730; 87070; 87102; 87116; 87205; 87206; 88108; 88305; 88341; 88342; 88360; 89051; 92610; 93005; 93306; 94640; 94760; 97161; 97165; A9540; A9567; C1729; G8978-GP; G8979-GP; G8980-GP; G8987-GO; G8988-GO; G8989-GO; G8996-GN; G8997-GN; G8998-GN; J0690; J1170; J1650; J1815; J2250; J2405; J2920; J3010

== ENCOUNTER → 2017-01-18 | Outpatient (CLI) | payer MEDICARE, OTHER ==
[~2017-01-18] VITALS: Ht 160 cm; Wt 105.2 kg
[~2017-01-18] MED LIST changes: +(NONE)2.5 MG PO; +ACID REDUCER20 MG PO; +ALBUTEROL17 GM INH; +AMITIZA24 MCG PO; +BREO ELLIPTA 11 EACH INH; +LASIX20 MG PO; +LETROZOLE2.5 MG PO; +LOMOTIL WHITE2.5 M1 PO; +METFORMIN PO; +NEURONTIN800 MG PO; +OMEPRAZOLE20 M1 PO; +ONDANSETRON ODT4 MG PO; +PEPCID AC20 M2 PO; +PREDNISONE PO; +PREDNISONE10 M1; +TRAZODONE HCL100 MG PO; +ZANAFLEX PO; +ZANAFLEX4 M1 PO; +ZOFRAN8 MG PO; +ZOLOFT50 MG PO
--- NOTE | ~2017-01-18 | XA91 ---
[facility] A Service of [facility] RADIOLOGY TEXT RESULTS PATIENT: MARIE CHRISTY LOCATION: [facility] : [birth year] UNIT #: [id number] AGE: [address]: Neil Butcher MD SEX: F ORDER DR: [id number] [facility] [address] [address] [place], [place] [address] [id number] O MR#: [id number] Acc #: [id number] NAME: MARIE CHRISTY : 1950 SEX: F STUDY DATE/TIME: 01/18/2017 11:32 UNIT: [facility] ROOM: STUDY DESCRIPTION: XA CVC Tunneled W Port Attending Physician: Neil Butcher M.D. Referring Physician: Neil Butcher M.D. Ordering Physician: Neil Butcher M.D. Primary Care Physician: Carlos Ruiz M.D. MEDICAL IMAGING REPORT This report is preliminary unless electronic signature is present EXAM Mediport placement. HISTORY Ms. Christy is a 66-year old woman with a history of left breast cancer with known hepatic metastases, requires access for chemotherapy. The procedure was explained to the patient including risks, benefits and potential complications, potential for alternative forms treatment. Informed consent was obtained and prior to initiating the procedure a formal time-out procedure was performed. Using all elements of maximal sterile barrier technique including hand hygiene, caps, sterile gowns, gloves and masks. The right neck was prepped with 2% chlorhexidine for cutaneous antisepsis and covered with a large sterile sheet. The ultrasound probe was covered with sterile probe cover and sterile gel was applied. Real time sterile ultrasound guidance was used to localize the right internal jugular vein which was found to be patent and compressible. A hard copy ultrasound image was obtained. After localization with 1% Xylocaine was punctured using real time sterile ultrasound guidance and 018 guide wire was advanced to the superior vena cava under fluoroscopic guidance. Micropuncture sheath was advanced over the wire and a J-wire was advanced into the inferior vena cava. At this point I turned my attention to creation of port pocket. The subcutaneous tissues of the anterolateral chest wall were anesthetized with buffered lidocaine and lidocaine with epinephrine. The port pocket was created using combination of blunt and sharp dissection and the port was seen within the pocket and secured using 2 3-0 Vicryl sutures. Catheter was then tunneled up the right anterolateral chest wall to the insertion site at the neck. Sheath was advanced over wire, catheter was measured and trimmed. Catheter was then advanced through the peel-away sheath and was positioned within the superior vena cava. Its position was confirmed with radiographic image. Of note, the patient was also noted to have a Pleurx STS. [facility] A Service of [facility] RADIOLOGY TEXT RESULTS PATIENT: MARIE CHRISTY [facility] [birth year] UNIT #: [id number] AGE: [address]: Neil Butcher MD SEX: F ORDER DR: catheter on the right. Deep layer of the port pocket was closed using interrupted 3-0 Vicryl sutures and a running 4-0 Monocryl suture was used to close the skin. Single 4-0 Monocryl suture was applied to the insertion site of the neck. Dermabond was applied to both wounds to act as a dressing. Following placement of the catheter it flushed and aspirated easily. Total fluoroscopy time was 0.3 minutes and a single fluoroscopic image was obtained. The patient did receive moderate sedation consisting of 3 mg Versed and 100 mcg of fentanyl. I supervised the IVR nurse and monitored the patient's vital signs for a total of 35 minutes of face to face time. IMPRESSION Successful placement of a right-sided MediPort which terminates in the superior vena cava. This catheter is ready for immediate use. Ultrasound and fluoroscopy were used during placement of the catheter and permanent images were saved. Dictated by... Monica Arthur M.D. THIS IS AN ELECTRONICALLY VERIFIED REPORT Monica Arthur M.D. at 01/19/2017 5:50 PM AFF/dj TD: 01/19/2017 11:08 JOB #: [id number] MEDICAL IMAGING REPORT Page 1 of 1 COPY
[2017-01-18 10:28] LABS: HEMATOCRIT 39.5 % (35.0-45.0); HEMOGLOBIN 12.7 gm/dL (12.0-16.0); MEAN CELL VOLUME 94.2 FL (83-96); MEAN CORPUSCULAR HEMOGLOBIN 30.3 PG (28-34); MEAN CORPUSCULAR HGB CONC 32.1 g/dL (30-36); MEAN PLATELET VOLUME 6.8 FL (6.5-11.5); RED BLOOD COUNT 4.19 X10e (3.90-5.30); RED CELL DISTRIBUTION WIDTH 18.7 % (11.0-15.5)
[2017-01-18 10:35] LABS: PARTIAL THROMBOPLASTIN TIME 22.8 SECONDS (23.5-31.3); PROTHROMBIN TIME (PATIENT) 10.8 SECONDS (10.0-11.7)
== END | disposition home or self-care (01) ==
LOC: CIVR 09:16
PROVIDERS: Internal Medicine Hematology & Oncology
DX: C50.412 Malignant neoplasm of upper-outer quadrant of left female breast (principal); C79.51 Secondary malignant neoplasm of bone; C78.7 Secondary malignant neoplasm of liver and intrahepatic bile duct; M06.9 Rheumatoid arthritis, unspecified; D70.8 Other neutropenia; R13.10 Dysphagia, unspecified; G47.30 Sleep apnea, unspecified; G89.3 Neoplasm related pain (acute) (chronic); J45.20 Mild intermittent asthma, uncomplicated; K74.60 Unspecified cirrhosis of liver; Z79.899 Other long term (current) drug therapy; Z79.891 Long term (current) use of opiate analgesic; Z83.3 Family history of diabetes mellitus; Z82.49 Family history of ischemic heart disease and other diseases of the circulatory system; Z90.12 Acquired absence of left breast and nipple; Z88.5 Allergy status to narcotic agent; Z88.6 Allergy status to analgesic agent; Z88.8 Allergy status to other drugs, medicaments and biological substances
CPT/HCPCS: 36415; 76937; 77001; 85027; 85610; 85730; C1788; C1894; J0690; J1642; J2250; J3010

== ENCOUNTER → 2017-01-31 | Outpatient (CLI) | payer MEDICARE, OTHER ==
--- NOTE | ~2017-01-31 | XA231 ---
[facility] A Service of [facility] RADIOLOGY TEXT RESULTS PATIENT: MARIE CHRISTY [facility] : [birth year] UNIT #: [id number] AGE: [address]: Neil Butcher MD SEX: F ORDER DR: [id number] [facility] [address] [place], [place] [address] [id number] O MR#: [id number] Acc #: [id number] NAME: MARIE CHRISTY : 1950 SEX: F STUDY DATE/TIME: 01/31/2017 13:10 UNIT: [facility] ROOM: STUDY DESCRIPTION: XA Consult Attending Physician: Neil Butcher M.D. Referring Physician: Neil Butcher M.D. Ordering Physician: Neil Butcher M.D. Primary Care Physician: Carlos Ruiz M.D. MEDICAL IMAGING REPORT This report is preliminary unless electronic signature is present EXAM Port check FINDINGS Ms. Christy is a 66-year-old lady who underwent MediPort placement on January 18, 2017. She returns for port site check today. She does complain of some left-sided chest pain today and persistent right-sided chest pain. She does have a indwelling pleural drainage catheter on the right, and is scheduled to follow up with Dr. Butcher later today. Port site itself is healing nicely with no significant erythema or ecchymosis overlying. No purulent drainage is identified. Port is ready for immediate use. Dictated by... Monica Arthur M.D. THIS IS AN ELECTRONICALLY VERIFIED REPORT Monica Arthur M.D. at 02/01/2017 4:45 PM AFF/kulwant TD: 02/01/2017 09:24 JOB #: [id number] MEDICAL IMAGING REPORT Page 1 of 1 COPY
--- NOTE | ~2017-01-31 | CT16 ---
[facility] A Service of [facility] & [facility] RADIOLOGY TEXT RESULTS PATIENT: MARIE ALEXANDRE LOCATION: CIVR : 49 UNIT #: [id number] AGE: [address]: Neil Butcher MD SEX: F ORDER DR: [id number] [facility] [address] [place], [place] [address] [id number] MR#: [id number] #: [id number] NAME: MARIE ALEXANDRE : 1950 SEX: F STUDY DATE/TIME: 01/31/2017 17:02 UNIT: [facility] ROOM: STUDY DESCRIPTION: CT Angio Chest for PE Attending Physician: Neil Butcher M.D. Referring Physician: Neil Butcher M.D. Ordering Physician: Neil Butcher M.D. Primary Care Physician: Carlos Ruiz M.D. MEDICAL IMAGING REPORT This report is preliminary unless electronic signature is present EXAM CT angiography chest for PE HISTORY Malignant neoplasm of upper outer quadrant of the left female breast; secondary malignant neoplasm; rheumatoid arthritis unspecified, other neutropenia. Short of air, chest pain, left side upper back pain for [address] of the chest performed for CT pulmonary angiography with administration of intravenous contrast. Three-dimensional reconstructions performed through the pulmonary arteries. This CT exam was performed with one or more of the following radiation dose reduction techniques: automatic exposure control, adjustment of mA and/or kV according to patient size, and iterative reconstruction. COMPARISON Noncontrast enhance study 01/31/2017 FINDINGS Heterogeneous thyroid with bilateral hypodense nodules. Similar appearance on prior study. Largest of these is in the medial mid right thyroid lobe measuring about 1 cm in diameter. No axillary adenopathy. Changes of left mastectomy. There is soft tissue thickening and mediastinum concerning for abnormal hayden tissue. This is in the precarinal space measuring 1.4 cm x 1.9 cm. Not significantly changed from prior study. Metabolic activity, unknown on basis of this examination. If warranted this could be further evaluated with CT PET scan. The heart is mildly enlarged. Stable appearance. The right-sided chest port catheter terminating in the upper right atrium. No left effusion. There is a small to moderate right effusion. There is a small caliber drain within the right effusion. The effusion is smaller than on STS. [facility] A Service of [facility] & [facility] RADIOLOGY TEXT RESULTS PATIENT: MARIE ALEXANDRE LOCATION: [facility] : 49 UNIT #: [id number] AGE: [address]: Neil Butcher MD SEX: F ORDER DR: prior study. There is some extension into the right major fissure. The visualized portions of liver show hypodense mass in the hepatic dome measuring about 6.3 cm in diameter, previously about 6 cm in diameter. Study not tailored for assessment of the liver. There are 2 subtle hypodensities in segment 5 and 6 of the liver. The larger of these is in segment 6 measuring about 3 cm in diameter, previously about 3.6 cm in diameter. Evolving metastatic disease is a consideration. I do not see a distinct new hepatic lesion. The spleen, pancreas, adrenal glands, visualized kidneys unremarkable. No upper abdominal adenopathy. Esophagus, stomach visualized small bowel and colon unremarkable. The lungs show increased interlobular septal thickening and interstitial prominence most pronounced in the right lung. Patchy areas of ground-glass density in the mid to inferior right upper lobe in the right lower lobe and the right middle lobe. In the left lung, the linear interstitial prominence and patchy ground-glass densities are more pronounced in the lower lung zones. Bronchial wall thickening as well. I would favor that findings reflect pulmonary edema with interstitial and milder alveolar components. Possibility of interstitial pneumonitis might be considered but is felt less likely. There is an irregular nodule in the posterior right lung apex measuring 1 cm x 7.6 cm. Questionably present on prior examination and probably not significantly changed. There is a second smaller nodule in the right apex measuring about 5-6 mm in diameter. Probably present on prior study as well. In the posterior right upper lobe, there is a 7 mm nodular density. This may have been obscured on prior study by airspace disease and pleural effusion. These nodules do raise concern for potential metastatic disease in this patient and short-interval followup is recommended. The left lung shows a 7 mm noncalcified nodule in the periphery of the mid left upper lobe. No significant change from prior study. In the left upper lobe there is an ill-defined 1.2 cm x 7 mm nodular density in the anterior superior lingular segment. Not significantly changed from prior study. More inferiorly there is an irregular nodule measuring about 1.8 cm x 7-8 mm. On today's examination, this appears slightly more solid in configuration in appearance but it is not significantly changed in size. The more solid appearance could be a reflection of thinner section axial imaging. Patchy densities at the left lung base posteriorly are largely new and concerning for components of edema or pneumonitis. The bony structures show no clearly acute abnormality. Mixed lytic and sclerotic metastatic lesions at multiple vertebral body levels are unchanged. Evidence of prior orthopedic intervention in the left humerus. Pulmonary arteries are well opacified. No PE. There is some mucous plugging in several right upper lobe bronchi. The aorta is normal in caliber. No dissection. Visualized branch vessels patent. IMPRESSION 1. No PE. No evidence of aortic aneurysm or dissection. [facility] A Service of [facility] RADIOLOGY TEXT RESULTS PATIENT: MARIE ALEXANDRE LOCATION: [facility] : 49 UNIT #: [id number] AGE: [address]: Neil Butcher MD SEX: F ORDER DR: 2. Please see complete dictation above for full details. The patient has a small to moderate right pleural effusion decreased from 01/08/2017. There is a small-caliber pleural drain along the posterior thorax. 3. Pulmonary parenchyma has changed in appearance compared to prior study. There is improved aeration of the right lower lobe given lower volume pleural effusion but there is a significant increase in interlobular septal thickening, linear interstitial markings and patchy ground-glass densities in the right lung with the ground-glass components more pronounced in the mid to inferior right lung. There are some similar though less pronounced findings in the mid to inferior left lung. Findings probably reflect pulmonary edema with interstitial and alveolar components as well as a right pleural effusion. Followup to radiographic resolution is recommended. 4. 3 nodular densities in the left lung not significantly changed from 01/08/2017 and concerning for potential metastatic disease. Short-interval followup recommended. 5. There are nodular densities in the right lung as well. See locations and sizes in body of report. Two of these at the right apex probably not changed from prior examination, they are more conspicuous on today's study with decreased pleural fluid. There is a 7 mm posterior right upper lobe pulmonary nodule on image number 45 not clearly seen on the prior examination. It may have been obscured on the prior study. On today's examination, it could be a manifestation of the underlying pulmonary parenchymal acute process and/or atelectasis. Short-interval followup recommended. 6. Hepatic metastatic disease. Dominant mass in the hepatic dome slightly increased in size measuring 6.3 cm in diameter, previously 6 cm. Dominant lesion in segment 6 of the liver slightly decreased in size measuring 3 cm in diameter, previously 3.6 cm. No entirely new hepatic lesions are seen. 7. 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 8. No clearly acute abnormality in the upper abdomen. 9. Left mastectomy. 10. Dr. Butcher's service has been paged for discussion at time of this dictation. Dictated by... Yandel Awad M.D. THIS IS AN ELECTRONICALLY VERIFIED REPORT Yandel Awad M.D. at 02/01/2017 1:21 PM JSK/to TD: 01/31/2017 19:05 JOB #: [id number] [facility]. [facility] A Service of [facility] RADIOLOGY TEXT RESULTS PATIENT: MARIE ALEXANDRE LOCATION: [facility] #: [id number] : 49 UNIT #: [id number] AGE: [address]: Neil Butcher MD SEX: F ORDER DR: MEDICAL IMAGING REPORT Page 1 of 1 COPY
[2017-02-01 06:51] LABS: POC - CREATININE 0.83 mg/dL (0.44-1.03); POC - GFR >60.0 mL/min (>60)
== END | disposition home or self-care (01) ==
LOC: CCAT 12:56 → CIVR 12:56
PROVIDERS: Internal Medicine Hematology & Oncology
DX: C50.412 Malignant neoplasm of upper-outer quadrant of left female breast (principal); C79.51 Secondary malignant neoplasm of bone; M06.9 Rheumatoid arthritis, unspecified; D70.8 Other neutropenia; J90 Pleural effusion, not elsewhere classified; R91.1 Solitary pulmonary nodule; K76.9 Liver disease, unspecified; Z90.12 Acquired absence of left breast and nipple
CPT/HCPCS: 71275; 76140; 82565; J1642; Q9967

== ENCOUNTER 2017-03-06 14:10 | Inpatient (IN) | payer MEDICARE, OTHER ==
[~2017-03-06] VITALS: Ht 160 cm; Wt 101.4 kg
--- NOTE | ~2017-03-06 | US140 ---
[facility] A Service of [facility] & [facility] RADIOLOGY TEXT RESULTS PATIENT: MARIE ALEXANDRE LOCATION: [address] : [birth year] UNIT #: [id number] AGE: [address]: Melissa Estrada MD SEX: F ORDER DR: [id number] [facility] [address] [place], [place] [address] [id number] I MR#: [id number] Acc #: [id number] NAME: MARIE ALEXANDRE : 1950 SEX: F STUDY DATE/TIME: 03/11/2017 15:22 UNIT: [facility] ROOM: [facility] STUDY DESCRIPTION: US UE Veins Unilat or Ltd Stdy Attending Physician: Melissa Estrada M.D. Ordering Physician: Melissa Estrada M.D. Primary Care Physician: Carlos Ruiz M.D. MEDICAL IMAGING REPORT This report is preliminary unless electronic signature is present EXAM Left upper extremity Doppler venous ultrasound 03/11/2017 HISTORY Left upper extremity swelling for 2 days. History of left mastectomy. TECHNIQUE Venous ultrasound examination of the left upper extremity was performed using grayscale, spectral Doppler and color flow Doppler imaging. FINDINGS The examination is negative. There is no evidence of deep venous thrombus within the left internal jugular vein, subclavian vein, axillary vein or brachial veins. No superficial venous thrombus is seen within the cephalic or basilic veins. IMPRESSION Negative examination. No evidence of left upper extremity venous thrombosis. Dictated by... Cristal Guallpa M.D. THIS IS AN ELECTRONICALLY VERIFIED REPORT Cristal Guallpa M.D. at 03/13/2017 9:52 AM YAHIR/kulwant TD: 03/12/2017 12:37 JOB #: [id number] MEDICAL IMAGING REPORT Page 1 of 1 COPY
--- NOTE | ~2017-03-06 | EKG ---
PATIENT: MARIE ALEXANDRE UNIT #: [id number] Ventricular Rate: 135 BPM Atrial Rate: 135 BPM P-R Interval: 144 ms QRS Duration: 70 ms Q-T Interval: 280 ms QTC Calculation(Bezet): 420 ms P Sunset: 30 degrees Calculated R Sunset: -14 degrees Calculated T Sunset: 59 degrees Diagnosis Line: Sinus tachycardia Diagnosis Line: Inferior infarct (cited on or before 09-JAN-2017) Diagnosis Line: Anterior infarct , age undetermined Diagnosis Line: Abnormal ECG Diagnosis Line: When compared with ECG of 09-JAN-2017 10:22, Diagnosis Line: Anterior infarct is now Present Diagnosis Line: Questionable change in initial forces of Inferior Diagnosis Line: leads Diagnosis Line: Confirmed by KATERINA RODRIGUEZ MD ([id number]) on Diagnosis Line: 03/09/2017 10:47:31 AM INTERPRETING MD: JENNIFER HUGHES
--- NOTE | ~2017-03-06 | CO ---
Unit #: [id number] #: [id number] Patient: MARIE CHRISTY [id number] [facility]. [address] [place], [place] [address] [id number] I MR#: [id number] NAME: MARIE CHRISTY. ROOM: 333 Age: 66 Sex: F Admission Date: 03/06/2017 : 1950 Attending Physician: Melissa Estrada M.D. Primary Care Physician: Carlos Ruiz M.D. Consultation Date: 03/14/2017 CONSULTATION REPORT PRIMARY CARE PHYSICIAN Carlos Ruiz M.D. REASON FOR CONSULTATION Dysphagia and metastatic breast cancer. HISTORY OF PRESENT ILLNESS Ms. Christy is a very pleasant 66-year-old white female. Most of the history was provided by the patient and her son was at the bedside. Apparently, the patient is currently in the intensive care unit with history of aspiration and respiratory failure. She initially had presented with shortness of breath and found to have interstitial infiltrate particularly in the area of the lingula and this was attributed to aspiration. The patient is having particularly problems to ingestion of liquids and has little problem with the solids. 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 The malignant pleural effusions were on the right side. Lately, there is history of aspiration pneumonia. MEDICATIONS At home included Ventolin, Breo, Zanaflex, as well as Pepcid, Lasix, prednisone, Lomotil, Glucophage, Amitiza, and trazodone. ALLERGIES She is allergic to naproxen, Lipitor, and codeine. SOCIAL HISTORY The patient quit smoking more than 30 years ago and does not drink alcohol. She lives by herself. FAMILY HISTORY There is family history of bronchial asthma. It seems that the patient's breast cancer was initially diagnosed in 05/2013 when she underwent left modified radical mastectomy followed by reconstruction. She has been on hormonal therapy after initially receiving four cycles of Cytoxan and Taxotere. In 01/2017, she was started on weekly chemotherapy with Abraxane. REVIEW OF SYSTEMS Unit #: [id number] #: [id number] Patient: MARIE CHRISTY Detailed review of organ systems does not reveal any recent weight loss. No history of fever, chills, or rigors. No history of headache, seizures, chest pain, or syncope. No history of cough, expectoration, or hemoptysis. There is history of dysphagia and aspiration to liquids and history of shortness of breath as mentioned above. No history of hemoptysis. PHYSICAL EXAMINATION GENERAL: She appears somewhat somnolent and confused, but able to respond to verbal commands. VITAL SIGNS: Indicate a temperature of 97.3, pulse is 108, respiratory rate is 22, and blood pressure is 131/60. She weighs 243 pounds and appears obese. HEENT: She has mild pallor. There being no icterus, lymphadenopathy, and grade 1 pitting peripheral edema. CARDIOVASCULAR: Normal heart sounds. No murmurs on auscultation. LUNGS: Reveal normal breath sounds. Good air entry. ABDOMEN: Soft, obese, and nontender. Liver and spleen are not palpable. Bowel sounds normal. DIAGNOSTIC STUDIES LABORATORY RESULTS: Shows an INR of 1.3. Her hemoglobin is 9.2, baseline hemoglobin is 12, red cell indices are normochromic and normocytic. The WBC count is 9.2, and platelet count is 112. Serum chemistry shows a BUN and creatinine of 58 and 1.1. Serum potassium is 3.7. Albumin is 1.9, total bilirubin is 2.2 most of which is indirect. AST and ALT are normal. Alkaline phosphatase is also normal. The patient has low TIBC and high ferritin indicating anemia of chronic disease. Glycohemoglobin was 6.2 a month or two ago. The patient's speech, swallow studies pending. CLINICAL IMPRESSION The patient most likely has high-grade oropharyngeal dysphagia. One however has to rule out mechanical cause of dysphagia and a diagnostic endoscopy is warranted. I have also taken time to discuss with the son possibility of placing a PEG for enteral feeding; however, the family wishes to keep it in the background and not make any decision on the latter case. If she does not have any mechanical cause for dysphagia, then her Dobhoff tube will be kept in the stomach so as to be able to feed her by enteral route. The upper endoscopy will be scheduled for tomorrow. The pros and cons of procedure, potential risks, and complications were discussed with the patient and her son and the possible complications of perforation, bleeding, and complication related to sedation were also discussed. Thank you very much for asking me to see this pleasant woman. I appreciate the consult. Dictated by... Dilshad Bravo/juanita TD: 03/21/2017 15:52 JOB #: [id number] CC: Melissa Estrada M.D. Unit #: [id number] #: [id number] Patient: MARIE CHRISTY M.D. Vijay M. Raghavan, M.D. CONSULTATION REPORT Page 1 of 1 X Richard Hobbs MD X CONSULTATION REPORT
--- NOTE | ~2017-03-06 | HP ---
Unit #: [id number] #: [id number] Patient: MARIE CHRISTY [id number] [address] [address] [id number] I MR#: [id number] NAME: MARIE CHRISTY. ROOM: 337 Age: 66 Sex: F Admission Date: 03/06/2017 : 1950 Attending Physician: Melissa Estrada M.D. Primary Care Physician: Carlos Ruiz M.D. HISTORY AND PHYSICAL CHIEF COMPLAINT Shortness of breath. HISTORY OF PRESENTING ILLNESS Miss Marie Christy is a 66-year-old female who has been diagnosed with metastatic breast cancer disease. Patient does have malignant right pleural effusion. She was admitted in December 2016 and had insertion of the right PleurX catheter which she still has. Patient started having shortness of breath which was just started three days ago or so. It was gradually getting worse. She went to Dr. Butcher's office and was suggested to come to ER for admission. Patient is being admitted for possible pneumonia. Patient was having cough with some sputum production, does not complain of any hemoptysis, does not remember having any fever but she has been feeling very weak and tired. No complaint of nausea or vomiting. No complaint of chest pain. Her mainly shortness of breath is exertional. PAST MEDICAL HISTORY 1. History of metastatic breast disease. 2. Chronic liver disease, possible cirrhosis. 3. Hyperlipidemia. 4. Diabetes mellitus type 2. 5. Rheumatoid arthritis. PAST SURGICAL HISTORY History of mastectomy. FAMILY HISTORY Asthma. SOCIAL HISTORY Patient has a history of smoking but she quit many years ago. ALLERGIES The patient is allergic to codeine, naproxen and Lipitor. HOME MEDICATIONS Home medications are: 1. Breo one puff inhaler q. day. 2. Ventolin one puff inhaler q. day p.r.n. 3. Zanaflex 4 mg three times a day. 4. Lomotil one tablet q. day p.r.n. 5. Glucophage 500 mg b.i.d. Unit #: [id number] #: [id number] Patient: MARIE CHRISTY 6. Zofran 8 mg three times a day p.r.n. 7. Amitiza 24 mcg p.o. twice a day p.r.n. 8. Acid reduced 20 mg q. day. 9. Trazodone 100 mg q.h.s. 10. Lasix 20 mg daily. 11. Prednisone 10 mg at bedtime. REVIEW OF SYMPTOM As per history of presenting illness. PHYSICAL EXAMINATION GENERAL APPEARANCE: Patient is being evaluated in ER bed 9. She seems to be in mild respiratory distress and she is coughing a lot while talking to me. According to patient, she has chronic aspiration also. She uses thickener in her liquids. VITAL SIGNS: On admission patient's pulse ox was 88%, now blood pressure is 149/86, respiratory rate 23, pulse is 123, temperature 98.5, oxygen saturation is 90%. On admission the patient's pulse rate was 140. HEENT: Head is normocephalic. Eye movements are normal. Patient is edentulous. CHEST: Has decreased air entry. Rhonchi is present. CVS: Is tachycardia, regular rhythm. ABDOMEN: Is obese. EXTREMITIES: Negative edema. [employer] PACKING: Patient is awake, alert, oriented x3. No focal neurological deficit. DIAGNOSTIC STUDIES LABORATORY WORKUP: WBC 9.2, hemoglobin 11.5, hematocrit 35.8 and platelet count of 132, troponin is less than 0.05, BNP is 69, sodium 141, potassium 3.4, chloride 104, BUN 29, creatinine 1.1 and glucose is 234, lactic acid 3.3. ASSESSMENT Patient is being admitted to telemetry unit with the diagnoses of: 1. Acute hypoxic respiratory failure. 2. Pneumonia. 3. Sinus tachycardia. 4. Malignant pleural effusion, status post right PleurX catheter placement in December 2016. 5. Acute exacerbation of chronic obstructive pulmonary disease. 6. Hypokalemia. 7. Metastatic breast cancer. 8. Diabetes mellitus type 2. 9. History of rheumatoid arthritis. PLAN Plan is admit to telemetry unit. Dr. Moreno has been consulted. IV antibiotic including Zosyn and vancomycin is being started, IV Solu-Medrol 40 mg q.12, Lovenox 40 mg subcu daily, mini-neb treatment q.i.d. Sputum for Gram stain and culture. Home medications have been reviewed and adjusted. Dr. Butcher will be consulted. Plan of care has been discussed with patient. Please refer to progress note for further orders. Dictated by Unit #: [id number] #: [id number] Patient: MARIE CHRISTY M.D. KN/emily TD: 03/06/2017 21:53 JOB #: [id number] HISTORY AND PHYSICAL Page 1 of 1 X Melissa Estrada MD X HISTORY AND PHYSICAL
--- NOTE | ~2017-03-06 | CR7 ---
[facility] A Service of [facility] & [facility] RADIOLOGY TEXT RESULTS PATIENT: MARIE ALEXANDRE LOCATION: [facility] 333-01 : [birth year] UNIT #: [id number] AGE: [address]: Melissa Estrada MD SEX: F ORDER DR: [id number] [facility] [address] [place], [place] [address] [id number] MR#: [id number] Acc #: [id number] NAME: MARIE ALEXANDRE : 1950 SEX: F STUDY DATE/TIME: 03/15/2017 21:13 [facility] STUDY DESCRIPTION: CR Abdomen Single AP View Attending Physician: Melissa Estrada M.D. Ordering Physician: Melissa Estrada M.D. Primary Care Physician: Carlos Ruiz M.D. MEDICAL IMAGING REPORT This report is preliminary unless electronic signature is present EXAM Abdomen, 03/15 21:13 hours INDICATION Shortness of air, sepsis, weakness, abdominal distension. FINDINGS Multiple views of the abdomen and pelvis were obtained. Comparison made with 03/09/2017. There is some oral contrast in the ascending colon. Predominately colonic gas is present. There is marked degenerative disease in the lumbar spine. High density material overlies the stomach and could be contrast as well. IMPRESSION The bowel gas pattern is normal. Feeding tube is present in the stomach. Dictated by... Nick Telles Jr., M.D. THIS IS AN ELECTRONICALLY VERIFIED REPORT Nick Telles Jr., M.D. at 03/19/2017 7:11 AM KEISHA/mindy TD: 03/16/2017 08:30 JOB #: [id number] MEDICAL IMAGING REPORT Page 1 of 1 COPY
--- NOTE | ~2017-03-06 | FU ---
[facility] Nutrition Therapy DATE: 03/09/17 Patient: MARIE ALEXANDRE Physician: CHAS Address: [address] [place] [address] Room/Bed: [address], Zip: [place] [address] Admit Date: 03/06/17 Date of : [birth year] Height: 5 3 Weight: 224 102 NUTRITION MONITORING/FOLLOW-UP: Reason: NUTRITION F/U- PATIENT ON VENT Anthropometrics: HT: 63", WT: 102KG (224#), BMI: 39.7 Labs: 03/09/17- K: 3.1, GLU: 319, BUN: 26, CA: 6.6, ALB: 2.1 Meds: PROPOFOL (27.3ML/HR), FENTANYL, NACL, NOVOLOG, FUROSEMIDE, PROTONIX, 5% DEXTROSE I&O's: 5696/1649 Skin: STAGE 2 P.U. TO BUTTOCKS Estimated Nutrition Needs: KCAL: 7249-4272 KCAL/DAY (20-25KCAL/KG) PROTEIN: 102-122GM/DAY (1.0-1.2GM/KG FLUIDS: 1ML/KCAL OR PER MD ORDERS Assessment: PATIENT WAS ADMITTED FOR SEPSIS, PNA, AND RESPIRATORY FAILURE. SHE WAS TRANSFERED TO ICU AND INTUBATED D/T RESPIRATORY DISTRESS. SHE HAS BEEN STARTED ON ANTIBIOTICS. PATIENT HAS A HX OF ASPIRATION PNA AND USES THICKENER AT HOME FOR LIQUIDS. PATIENT HAS A DX OF BREAT CA WITH METS TO SPINE AND LIVER. THERE WAS NO FAMILY PRESENT AT BEDSIDE. PATIENT HAS AN ORDER TO START GLUCERNA AT 15ML/HR ONCE DHT PLACEMENT IS CONFIRMED. PLEASE SEEN EN RECOMMENDATIONS BELOW. Dx: INADEQUATE PROTEIN-ENERGY INTAKE R/T DECREASED APPETITE, PMH, CURRENT CLINICAL CONDITION AEB PT REPORT, ~4% WEIGHT LOSS PAST 3 WEEKS - ACTIVE NEW DX: INADEQUATE NUTRIENT INTAKE R/T CURRENT CONDITION AEB NPO STATUS, VENT Intervention: ENTERAL NUTRITION INITIATION, NPO DIET, MEDS/FLUIDS PER MD Monitoring, Evaluation and Goals: 1. PROVIDE 100% ESTIMATED NUTRIENT NEEDS 2. INITIATE ENTERAL NUTRITION 3. PREVENT, CORRECT MICRO/MACRO NUTRIENT DEFICIENCIES MONITOR: WEIGHTS, LABS, I/Os, ELECTROLYTES Recommendations: 1. ONCE MEDICALLY FEASIBLE BEGIN ALTERNATIVE NUTRITION SUPPORT OF GLUCERNA 1.5 @ 15ML/HR AND ADVANCE 10ML Q 6 HOURS TO A GOAL RATE OF 40ML/HR. [facility] Nutrition Therapy DATE: 03/09/17 Patient: MARIE Cornelius BALDOMERO Physician: CHAS Address: [address] [place] [address] Room/Bed: [address], Zip: [place] [address] Admit Date: 03/06/17 Date of : [birth year] Height: 5 3 Weight: 224 102 -PROVIDES: 1140 KCAL / 79 GM PROTEIN / 730ML H20 -PROPOFOL PROVIDES 721KCAL/DAY -ADD FREE WATER FLUSHES OF 200ML Q 3 HOURS OR PER MD ORDERS 2. ADD PROSTAT BID - PROVIDES 30GM PROTEIN AND 200KCALS Status: PATIENT IS AT MOD/SEVERE NUTRITION RISK Respectfully, AMARJIT THURSTON, RD, LD Food and Nutritional Services [facility] cc: client file
--- NOTE | ~2017-03-06 | OR ---
Unit #: [id number] #: [id number] Patient: MARIE ALXEANDRE [id number] [address] [address] [id number] I MR#: [id number] NAME: MARIE ALEXANDRE. ROOM: [facility] Date of Procedure: 03/09/2017 Admission Date: 03/06/2017 Surgeon: Jeffrey Moreno M.D. : 1950 Attending Physician: Melissa Estrada M.D. Primary Care Physician: Carlos Ruiz M.D. OPERATIVE REPORT PROCEDURE PERFORMED Flexible fiberoptic bronchoscopy. INDICATION FOR PROCEDURE Abnormal CAT scan/pneumonia in an immunocompromised host. FINDINGS No endobronchial lesion seen. BAL, right middle lobe. SEDATION Ventilator sedation. COMPLICATIONS None. CONDITION AFTER PROCEDURE Stable. DESCRIPTION OF PROCEDURE The patient was in the intensive care unit, orally intubated on ventilator sedation. Anesthetized with approximately 4 mL of 2% lidocaine down ET tube. Bronchoscope was introduced. Main airways were evaluated and anesthetized. No endobronchial lesions were seen. All sub-segments were identified. Bronchoscope was removed to allow ventilation. Bronchoscope was reinserted and placed in the wedge position in the right middle lobe. BAL 60 mL aliquots x2 were instilled with very good return. Some of the BAL fluid was captured with bronchial washings. The bronchoscope was removed without difficulty and the patient was in stable condition postprocedure. Dictated by... Dilshad Marques/juanita TD: 03/10/2017 04:50 JOB #: [id number] CC: Neil Butcher M.D. Unit #: [id number] #: [id number] Patient: MARIE ALEXANDRE OPERATIVE REPORT Page 1 of 1 X Jeffrey Moreno MD X PROCEDURE OPERATIVE NOTE
--- NOTE | ~2017-03-06 | DS ---
Unit #: [id number] #: [id number] Patient: MARIE ALEXANDRE [id number] [address] [place], [place] [address] [id number] I MR#: [id number] NAME: MARIE ALEXANDRE. ROOM: 333 Age: 66 Sex: F Admission Date: 03/06/2017 : 1950 Discharge Date: 03/16/2017 Attending Physician: Melissa Estrada M.D. Primary Care Physician: Carlos Ruiz M.D. DISCHARGE SUMMARY DISCHARGE DIAGNOSES 1. Acute respiratory failure secondary to malignant pleural effusion. 2. Methicillin-sensitive Staphylococcus aureus pneumonia. 3. Acute kidney injury. 4. Anemia of chronic disease. 5. Metastatic breast cancer. 6. Diabetes. CONSULTS ON THIS HOSPITAL STAY 1. Dr. Moreno, pulmonary. 2. Dr. Butcher, oncology. 3. Dr. Rogers, nephrology. 4. Dr. Hobbs, GI. LABS AND DIAGNOSTIC PROCEDURES ON THIS HOSPITAL STAY Flexible bronchoscopy per Dr. Moreno and EGD per Dr. Hobbs. Please see the report in the chart. Also, please see multiple x-rays and ultrasounds, along with the CT angio of the chest - all in the chart. HISTORY OF PRESENT HOSPITAL STAY Please refer to H and P done by my colleague, Dr. Melissa Estrada, for initial presentation on this female. Also, refer to consult and notes, as above. ACTIVE PROBLEMS AND DIAGNOSES 1. Acute respiratory failure secondary to malignant pleural effusion. Patient was treated with bronchodilators, steroids, IV antibiotics per Dr. Moreno. She was on the BiPAP, as well. However, due to her progression of her cancer and generalized deterioration of her condition, patient was evaluated by Hospice, made DNR and now has been taken off of the BiPAP, taken off of all active medications and is transferring patient Hospice for comfort measures only. 2. MSSA pneumonia. Again, was treated with the IV antibiotics. 3. Acute kidney injury. Was managed by nephrology. 4. Anemia of chronic disease. Last H and H 10.6 and 32.7. 5. Metastatic breast cancer status post evaluation per oncology, as above. 6. Diabetes was managed with insulin. DISPOSITION Patient is being discharged to inpatient Hospice for comfort measures only. FOLLOWUP Follow up with the Hospice care. Unit #: [id number] #: [id number] Patient: MARIE ALEXANDRE MEDICATIONS She is on p.r.n. morphine and Ativan for comfortable measures only. Dictated by... Dilshad Trujillo/santy TD: 03/17/2017 10:27 JOB #: [id number] DISCHARGE SUMMARY Page 1 of 1 X Mick Molina MD X DISCHARGE SUMMARY
--- NOTE | ~2017-03-06 | CR72 ---
[facility] A Service of [facility] RADIOLOGY TEXT RESULTS PATIENT: MARIE ALEXANDRE LOCATION: [facility] 333- : [birth year] UNIT #: [id number] AGE: [address]: Melissa Estrada MD SEX: F ORDER DR: [id number] [facility] [address] [facility]. [place], [place] [address] [id number] I MR#: [id number] Acc #: [id number] NAME: MARIE ALEXANDRE. : 1950 SEX: F STUDY DATE/TIME: 03/15/2017 16:28 [facility] ROOM: [facility] STUDY DESCRIPTION: CR Chest Single View Portable Attending Physician: Melissa Estrada M.D. Ordering Physician: Melissa Estrada M.D. Primary Care Physician: Carlos Ruiz M.D. MEDICAL IMAGING REPORT This report is preliminary unless electronic signature is present EXAM Portable chest INDICATIONS Shortness of breath, 9 days. COMPARISON STUDIES Comparison made to a prior exam from March 13, 2017. FINDINGS Cardiomediastinal silhouette is unchanged. Patient has a right internal jugular vein MediPort which extends into the superior vena cava. Weighted enteric feeding tube is present. The catheter is coiled upon itself with the tip directed towards the fundus of the stomach. Alveolar interstitial infiltrates are seen throughout both lungs. I think these have worsened, particularly on the left when compared to the prior exam. There are bilateral pleural effusions right greater than left. These have increased when compared to the prior study. No pneumothorax is seen. Increasing consolidation is noted at the lung bases bilaterally. Right-sided PICC line extends into the superior vena cava. Dictated by... Monica Arthur M.D. THIS IS AN ELECTRONICALLY VERIFIED REPORT Monica Arthur M.D. at 03/16/2017 5:09 PM AFF/ea TD: 03/16/2017 05:09 JOB #: [id number] MEDICAL IMAGING REPORT [facility] A Service of [facility] RADIOLOGY TEXT RESULTS PATIENT: MARIE ALEXANDRE LOCATION: [facility] 333-01 : [birth year] UNIT #: [id number] AGE: [address]: Melissa Estrada MD SEX: F ORDER DR: Page 1 of 1 COPY
--- NOTE | ~2017-03-06 | CR72 ---
[facility] A Service of [facility] RADIOLOGY TEXT RESULTS PATIENT: MARIE ALEXANDRE [address]ATION: [address] : [birth year] UNIT #: [id number] AGE: [address]: Melissa Estrada MD SEX: F ORDER DR: [id number] [facility] [address] [facility]. [place], [place] [address] [id number] I MR#: [id number] Acc #: [id number] NAME: MARIE ALEXANDER : 1950 SEX: F STUDY DATE/TIME: 03/08/2017 16:35 UNIT: [facility] ROOM: [facility] STUDY DESCRIPTION: CR Chest Single View Portable Attending Physician: Melissa Estrada M.D. Ordering Physician: Josiah Mane M.D. Primary Care Physician: Carlos Ruiz M.D. MEDICAL IMAGING REPORT This report is preliminary unless electronic signature is present EXAM AP portable chest, 03/08/2017. HISTORY Intubated today. Shortness of breath today. COMPARISON AP portable chest, 03/08/2017 at 0725. FINDINGS Endotracheal tube has been placed in place in satisfactory position in the mid-thoracic trachea, with the tip located approximately 2.5 cm above the level of the ruby. Diffuse interstitial and alveolar disease changes are present throughout both lungs, most confluent in the left gjv-ex-cckzj lung zone and right midlung. These findings are not thought to be significantly changed. Small right pleural effusion persists. No definite pneumothorax. Right chest wall Port-A-Cath extends to the lower SVC. Stable heart size. Benign calcified lymph nodes in the mediastinum. IMPRESSION 1. ET tube placement in satisfactory position about 2.5 cm above the ruby. 2. Diffuse interstitial and alveolar infiltrates with small right pleural effusion, unchanged compared to earlier today. Dictated by... Cristal Guallpa M.D. THIS IS AN ELECTRONICALLY VERIFIED REPORT [facility] A Service of [facility] RADIOLOGY TEXT RESULTS PATIENT: MARIE ALEXANDRE LOCATION: [address] : [birth year] UNIT #: [id number] AGE: [address]: Melissa Estrada MD SEX: F ORDER DR: Cristal Guallpa M.D. at 03/09/2017 8:43 AM YAHIR/kathleen TD: 03/09/2017 04:17 JOB #: [id number] MEDICAL IMAGING REPORT Page 1 of 1 COPY
--- NOTE | ~2017-03-06 | US77 ---
[facility] A Service of [facility] RADIOLOGY TEXT RESULTS PATIENT: MARIE ALEXANDRE LOCATION: [id number] : [birth year] UNIT #: [id number] AGE: [address]: Melissa Estrada MD SEX: F ORDER DR: [id number] [facility] [address] [facility]. [place], [place] [address] [id number] I MR#: [id number] Acc #: [id number] NAME: MARIE ALEXANDRE : 1950 SEX: F STUDY DATE/TIME: 03/12/2017 9:58 UNIT: [facility] ROOM: [facility] STUDY DESCRIPTION: US Kidney Bilateral Complete Attending Physician: Melissa Estrada M.D. Ordering Physician: Melissa Estrada M.D. Primary Care Physician: Carlos Ruiz M.D. MEDICAL IMAGING REPORT This report is preliminary unless electronic signature is present EXAM Bilateral renal ultrasound HISTORY Acute renal insufficiency. Elevated creatinine 1.6. FINDINGS Ultrasound examination of both kidneys demonstrates no hydronephrosis. Mild generalized bilateral renal parenchymal atrophy. No focal atrophy or perinephric fluid collection. Moderate urinary bladder distension. No bladder mass is identified. Mildly prominent right extrarenal pelvis is similar to CT 01/10/2016. Exam sensitivity is technically limited by large patient size. IMPRESSION 1. Mild generalized bilateral renal parenchymal atrophy. 2. Mildly prominent right extrarenal pelvis. 3. No renal mass is identified but sensitivity is partly limited by large patient size. Dictated by... Sorin Lazar M.D. THIS IS AN ELECTRONICALLY VERIFIED REPORT Sorin Lazar M.D. at 03/13/2017 2:32 PM MARCIAL/mala TD: 03/13/2017 14:11 JOB #: [id number] MEDICAL IMAGING REPORT [facility] A Service of [facility] RADIOLOGY TEXT RESULTS PATIENT: MARIE ALEXANDRE LOCATION: [facility] : [birth year] UNIT #: [id number] AGE: [address]: Melissa Estrada MD SEX: F ORDER DR: Page 1 of 1 COPY
--- NOTE | ~2017-03-06 | CO ---
Unit #: [id number] #: [id number] Patient: MARIE CHRISTY [id number] [address] [place], [place] [address] [id number] I MR#: [id number] NAME: MARIE CHRISTY. ROOM: [facility] Age: 66 Sex: F Admission Date: 03/06/2017 : 1950 Attending Physician: Melissa Estrada M.D. Primary Care Physician: Carlos Ruiz M.D. Consultation Date: 03/07/2017 CONSULTATION REPORT REASON FOR CONSULTATION Shortness of breath and abnormal CAT scan. HISTORY OF PRESENT ILLNESS Ms. Christy is a 66-year-old female who has metastatic breast cancer, recently found to have malignant pleural effusion, status post PleurX catheter placement. She has had several day to several week history of increasing shortness of breath. She has some rattling, but no mal wheeze. There have been no definite fever, only scant sputum production, and no hemoptysis. Chest x-ray showed pulmonary infiltrates. CT scan shows alveolar and interstitial infiltrate. There is a prominent area in her lingula. Her malignant pleural effusion on the right has diminished. We were asked to evaluate for possible bronchoscopy. She does have rheumatoid arthritis and is on chronic prednisone. PAST MEDICAL HISTORY Remarkable for metastatic breast cancer with malignant pleural effusion, possible cirrhosis, hyperlipidemia, diabetes, rheumatoid arthritis. There is a question of possible sleep apnea, but she has never been studied. MEDICATIONS At home Breo, Ventolin, Zanaflex, Lomotil, Glucophage, Amitiza, trazodone, Pepcid, Lasix, and chronic prednisone. ALLERGIES Codeine, Lipitor and Naprosyn. SOCIAL HISTORY Quit smoking 30 years ago. [place] She [place] well water, but generally she drinks bottled water. She has 2 dogs at home. She has not been out of the country or out of the region. She has not been around any sick contacts that she is aware of. FAMILY HISTORY Asthma. REVIEW OF SYSTEMS As above and no nausea, vomiting, aspiration, leg pain, swelling, hematuria, dysuria. Further review of systems negative and/or as above. PHYSICAL EXAMINATION VITAL SIGNS: Reveals a patient, who is afebrile, pulse is 107, respiratory rate is 18, blood pressure is 139/73, 5 feet 3 inches, 221 Unit #: [id number] #: [id number] Patient: MARIE CHRISTYs. HEENT: Pupils are equal, round, and reactive to light. Sclerae anicteric. Head atraumatic. NECK: Supple. No supraclavicular or cervical adenopathy appreciated. She is edentulous. CHEST: Fine crackles of multiple areas. No wheeze. CARDIAC: Distant heart tones. Regular rate and rhythm. No pathologic murmur, rub, or gallop. ABDOMEN: Soft and nontender. No hepatomegaly or rebound. EXTREMITIES: Reveal no clubbing, cyanosis, or edema. No calf tenderness. SKIN: Warm and dry without rash or diaphoresis. NEUROLOGIC: Grossly intact. No focal motor or sensory deficits. DIAGNOSTIC STUDIES LABORATORY RESULTS: Arterial blood gas; pH is 7.42, pCO2 of 37, and pO2 of 76 on 3 L. BUN 26, creatinine 0.9. BNP is only 69. Lactic acid 2.2. INR 1.3. Cardiac enzymes negative. White blood cell count is 6, hemoglobin is 9.1, platelet count 106. Blood cultures performed and are pending. Sputum; gram positive cocci, rare to moderate gram-negative rods. Rhythm strip, sinus. IMPRESSION 1. Shortness of breath, pulmonary infiltrates in an immunocompromised patient. Consider atypical pneumonia as well as other pathogens. 2. Metastatic breast cancer. 3. Respiratory failure. 4. Snoring, obesity, possible sleep apnea. 5. Rheumatoid arthritis. 6. Metastatic breast cancer etc. PLAN Antibiotics, nebulized bronchodilators. I have discussed the case with Dr. Butcher and we will try to pursue bronchoscopy in the morning. I have discussed the procedure with the patient including risk of respiratory failure, bleeding etc. and she agrees. Thank you very much for allowing me to participate in the care of Ms. Olivier. Dictated by... Jeffrey Moreno M.D. ANA/juanita TD: 03/08/2017 06:45 JOB #: [id number] CC: Neil Butcher M.D. Unit #: [id number] #: [id number] Patient: MARIE CHRISTY CONSULTATION REPORT Page 1 of 1 X Jeffrey Moreno MD CONSULTATION REPORT
--- NOTE | ~2017-03-06 | CR240 ---
[facility] A Service of [facility] RADIOLOGY TEXT RESULTS PATIENT: MARIE ALEXANDRE LOCATION: [facility] 333 : [birth year] UNIT #: [id number] AGE: [address]: Melissa Estrada MD SEX: F ORDER DR: [id number] [facility] [address] [facility] [address] [facility]. [place], [place] [address] [id number] I MR#: [id number] Acc #: [id number] NAME: MARIE ALEXANDRE : 1950 SEX: F STUDY DATE/TIME: 03/15/2017 12:14 UNIT: [facility] ROOM: [address] [place] [address] DESCRIPTION: CR Swallowing Fx W Cine or Vid Attending Physician: Melissa Estrada M.D. Ordering Physician: Melissa Estrada M.D. Primary Care Physician: Carlos Ruiz M.D. MEDICAL IMAGING REPORT This report is preliminary unless electronic signature is present EXAM Video assisted speech swallow with speech therapy 03/15/2017 INDICATION Dysphasia. TECHNIQUE Fluoroscopic assistance was provided to the speech pathologist as the patient ingested various barium-coated solutions. There are no comparisons. FINDINGS Notes indicate 1.3 minutes of fluoroscopy time used in the case. One spot fluoroscopic view from the procedure was saved to the PACS. The patient was given the following barium-coated solutions, pureed consistency and nectar thick consistency. There was penetration and aspiration with all administered barium coated solutions. Please see the final report of the speech pathologist for further details and follow up recommendations. IMPRESSION 1. Penetration and aspiration of all of the barium-coated consistencies. Please see the final report of the speech pathologist for further details. 2. Notes indicate 1.3 minutes of fluoroscopy time was used in the case. One spot fluoroscopic image from the procedure was saved to the PACS. Dictated by... Yasir Gonzales M.D. [facility] A Service of [facility] RADIOLOGY TEXT RESULTS PATIENT: MARIE ALEXANDRE LOCATION: [facility] 333 : [birth year] UNIT #: [id number] AGE: [address]: Melissa Estrada MD SEX: F ORDER DR: THIS IS AN ELECTRONICALLY VERIFIED REPORT Yasir Gonzales M.D. at 03/16/2017 8:29 AM Leslye TD: 03/16/2017 07:07 JOB #: [id number] MEDICAL IMAGING REPORT Page 1 of 1 COPY
--- NOTE | ~2017-03-06 | CR72 ---
[facility] A Service of [facility] RADIOLOGY TEXT RESULTS PATIENT: MARIE ALEXANDRE LOCATION: [facility] 337- : [birth year] UNIT #: [id number] AGE: [address]: Melissa Estrada MD SEX: F ORDER DR: [id number] [facility] [address] [facility]. [place], [place] [address] [id number] I MR#: [id number] Acc #: [id number] NAME: MARIE ALEXANDRE. : 1950 SEX: F STUDY DATE/TIME: 03/06/2017 14:38 UNIT: [address] ROOM: [facility] STUDY DESCRIPTION: CR Chest Single View Portable Attending Physician: Melissa Estrada M.D. Ordering Physician: Alexandre Rizzo M.D. Primary Care Physician: Carlos Ruiz M.D. MEDICAL IMAGING REPORT This report is preliminary unless electronic signature is present EXAM Portable chest, 03/06/2017. HISTORY 66-year-old female with shortness of air for 1 month. COMPARISON Chest x-ray, 01/11/2017. CT chest 01/31/2017. FINDINGS Frontal chest demonstrates stable right pleural drain. No pneumothorax. There is a small right pleural effusion again noted. Patchy infiltrates again noted throughout the right lung as well as the left mid and lower lung butler. Heart size is stable. Mediastinum and pulmonary vasculature unremarkable. Right-sided Port-A-Cath. Postsurgical changes of the left humerus are partially imaged. IMPRESSION 1. Stable right pleural drain with persistent small right pleural effusion and patchy infiltrates throughout the right lung. 2. Persistent patchy infiltrates in the left mid and lower lung field. 3. No visible pneumothorax. Dictated by... Jose Cruz Benton M.D. THIS IS AN ELECTRONICALLY VERIFIED REPORT Jose Cruz Benton M.D. at 03/07/2017 3:11 PM Maicol TD: 03/07/2017 00:13 JOB #: [id number] [facility] A Service of [facility] RADIOLOGY TEXT RESULTS PATIENT: MARIE ALEXANDRE LOCATION: [facility] 337-01 : [birth year] UNIT #: [id number] AGE: [address]: Melissa Estrada MD SEX: F ORDER DR: MEDICAL IMAGING REPORT Page 1 of 1 COPY
--- NOTE | ~2017-03-06 | CR72 ---
[facility] A Service of [facility] RADIOLOGY TEXT RESULTS PATIENT: MARIE ALEXANDRE LOCATION: [address] : [birth year] UNIT #: [id number] AGE: [address]: Melissa Estrada MD SEX: F ORDER DR: [id number] [facility] [address]. [place], [place] [address] [id number] I MR#: [id number] Acc #: [id number] NAME: MARIE ALEXANDRE : 1950 SEX: F STUDY DATE/TIME: 03/11/2017 6:08 UNIT: [facility] ROOM: [facility] STUDY DESCRIPTION: CR Chest Single View Portable Attending Physician: Melissa Estrada M.D. Ordering Physician: Sherri Gibbs D.O. Primary Care Physician: Carlos Ruiz M.D. MEDICAL IMAGING REPORT This report is preliminary unless electronic signature is present EXAM Portable chest. INDICATIONS Shortness of breath for 1 month. FINDINGS Comparison is made to a prior examination from March 09, 2017. The cardiomediastinal silhouette is stable. Endotracheal tube terminates above the level of the ruby. Weighted enteric feeding tube is present although I cannot see the distal tip. Patient has a right internal jugular vein MediPort which extends into the superior vena cava. Right-sided chest tube is present. No definite pneumothorax is seen. Alveolar and interstitial infiltrates are seen throughout both lungs but actually appear improved when compared to the March 09 examination. Trace bilateral pleural effusions are suspected. Dictated by... Monica Arthur M.D. THIS IS AN ELECTRONICALLY VERIFIED REPORT Monica Arthur M.D. at 03/12/2017 5:02 PM AFF/lb TD: 03/12/2017 08:58 JOB #: [id number] MEDICAL IMAGING REPORT Page 1 of 1 COPY
--- NOTE | ~2017-03-06 | CR72 ---
[facility] A Service of [facility] RADIOLOGY TEXT RESULTS PATIENT: MARIE ALEXANDRE LOCATION: [address]-15 : [birth year] UNIT #: [id number] AGE: [address]: Melissa Estrada MD SEX: F ORDER DR: [id number] [facility] [address]. [place], [place] [address] [id number] I MR#: [id number] Acc #: [id number] NAME: MARIE ALEXANDRE. : 1950 SEX: F STUDY DATE/TIME: 03/13/2017 6:02 UNIT: [facility] ROOM: [facility] STUDY DESCRIPTION: CR Chest Single View Portable Attending Physician: Melissa Estrada M.D. Ordering Physician: Jeffrey Moreno M.D. Primary Care Physician: Carlos Ruiz M.D. MEDICAL IMAGING REPORT This report is preliminary unless electronic signature is present EXAM Frontal chest 03/13/2017 INDICATIONS 66-year-old female with history of pneumonia and shortness of air, respiratory failure symptoms 7 days. Breast cancer and hypertension. COMPARISON Frontal chest compared 03/12/17 FINDINGS Preexisting tubes and lines in satisfactory position. Cardiac silhouette stable. Lung volumes remain low. Opacities diffusely in the right lung are not significantly changed. Trace to small right effusion. No distinct pneumothorax. Postop changes left shoulder. IMPRESSION 1. Tubes and lines appear to be in satisfactory position. No pneumothorax. 2. Interstitial and alveolar infiltrates in the right lung persist. Faint interstitial opacities in the left lung base not significantly changed. There is a trace to small right-sided effusion. Dictated by... Yasir Gonzales M.D. THIS IS AN ELECTRONICALLY VERIFIED REPORT Yasir Gonzales M.D. at 03/13/2017 2:29 PM Mike TD: 03/13/2017 12:27 [facility] A Service of [facility] RADIOLOGY TEXT RESULTS PATIENT: MARIE ALEXANDRE LOCATION: [facility] CICCU3-15 : [birth year] UNIT #: [id number] AGE: [address]: Melissa Estrada MD SEX: F ORDER DR: JOB #: [id number] MEDICAL IMAGING REPORT Page 1 of 1 COPY
--- NOTE | ~2017-03-06 | CO ---
Unit #: [id number] #: [id number] Patient: MARIE CHRISTY [id number] [address] [place], [place] [address] [id number] I MR#: [id number] NAME: MARIE CHRISTY ROOM: [facility] Age: 66 Sex: F Admission Date: 03/06/2017 : 1950 Attending Physician: Melissa Estrada M.D. Primary Care Physician: Carlos Ruiz M.D. Consultation Date: 03/07/2017 CONSULTATION REPORT PRIMARY CARE PHYSICIAN Carlos Ruiz M.D. REASON FOR CONSULTATION Metastatic breast cancer. Please evaluate for shortness of breathing. HISTORY OF PRESENT ILLNESS Ms. Marie Christy is a 66-year-old with a history of metastatic breast cancer, diagnosed in 08/2014, was seen in the office on 03/06/2017, complaining of acute shortness of breathing for the past 3 days, which was a worsening of previous chronic shortness of breathing. Her visiting nurse visited her yesterday morning and found that she was having a little bit discharge, but was markedly short of breath. She was advised to go to the emergency room, but instead chose to come and see me in the office yesterday afternoon when she was found to be in labored breathing and came in to [facility] and she was sent to the emergency room for further evaluation. In the ER, she has had a CT angio of the chest, which did not show any pulmonary emboli. However, she has bilateral interstitial and airspace infiltrates, most pronounced in the mid and lower zone with small pleural effusions and bilateral pleural nodules. Visualized liver metastasis appeared to be stable. Ms. Olivier tells me that she is still very short of breath. Without any significant change in cough or expectoration. She has been afebrile overnight and was started on steroids and broad-spectrum antibiotics. PAST MEDICAL HISTORY Longstanding rheumatoid arthritis, on prednisone; chronic liver disease with biopsy-proven cirrhosis; hypercholesterolemia; type 2 diabetes mellitus. Breast cancer was initially diagnosed on 05/26/2013, undergoing a left modified radical mastectomy with reconstruction. She was staged as a T2b and received 4 cycles of Taxotere and Cytoxan followed by adjuvant tamoxifen followed by [facility], who developed metastatic disease. She has been on hormonal therapy until the diagnosis of a malignant pleural effusion on 01/09/2017. She was started on weekly chemotherapy with Abraxane on 02/05/2017. FAMILY HISTORY Type 2 diabetes, atherosclerotic heart disease, and hypertension, but no history of breast cancer. SOCIAL HISTORY Never smoker. Does not drink any alcohol. She is single, . She has one son. Unit #: [id number] #: [id number] Patient: MARIE CHRISTY REVIEW OF SYSTEMS Fourteen point review of systems was taken. CONSTITUTIONAL: As discussed above. EYES: Negative. EARS, NOSE, MOUTH, AND THROAT: Negative. CARDIOVASCULAR: No chest pain, no palpitations. RESPIRATORY: As discussed above. GASTROINTESTINAL: Negative. GENITOURINARY: Negative. NEUROLOGIC: Negative. ALLERGY: Negative. ENDOCRINE: Diabetes, which has not been well controlled. LYMPHATIC: Negative. SKIN: Negative. PSYCHIATRIC: PHYSICAL EXAMINATION VITAL SIGNS: Temperature is 97.5, pulse is 87, respirations 20, blood pressure 112/77, O2 saturation 99% on 2 L. GENERAL: She is awake, alert, and oriented x3. Visibly labored breathing. Vitals are as mentioned. HEENT: Pupils are equal and reactive well to light. Mild pallor. No icterus. Mucous membranes are moist. NECK: Without adenopathy, JVD or thyromegaly. CARDIOVASCULAR: First and second heart sounds heard and regular without murmurs, gallops, or rubs. LUNGS: Chest expansion, scattered bilateral wheezes. Bilateral equal air entry. PleurX catheter noted on the right side. ABDOMEN: Soft and nontender. Bowel sounds are active. No organomegaly. EXTREMITIES: Warm, good pulses. No edema, cyanosis or clubbing. She does have lymphedema of the left arm from her breast cancer. NEUROLOGIC: She is awake, alert, oriented x3 without any focal findings. SKIN: Negative. PSYCHIATRIC: Normal affect. DIAGNOSTIC STUDIES LABORATORY RESULTS: Arterial blood gases; 7.42, pCO2 of 37.6, pO2 of 76.4. CBC with a white count of 9, hemoglobin 11.5, platelet count is 132,000. Prothrombin time is 13.8, INR 1.3, PTT is 27.1. Lactic acid was 3.3. IMAGING STUDIES: CT angio chest was personally reviewed by me and she does not show any evidence of pulmonary emboli, but does show bilateral infiltrates. ASSESSMENT AND PLAN Ms. Marie Christy is a 66-year-old with a history of metastatic breast cancer with lung metastasis, liver metastasis and bone metastasis, admitted with worsening shortness of breathing. She has a PleurX catheter placed for malignant right pleural effusion with CT scan evidence showing a very small effusion residual. CT scan of the chest shows bilateral infiltrates concerning for an opportunistic infection given her history rheumatoid arthritis, with long-term steroid usage versus bacterial pneumonia versus lymphangitic spread of her cancer. I discussed this in detail with the patient and I spoke to Dr. Moreno. I suggested that a bronchoscopy may be useful to evaluate these different possibilities. I agree with current plans with IV antibiotics and steroids while awaiting bronchoscopy. Unit #: [id number] #: [id number] Patient: MARIE CHRISTY Thank you for allowing me to participate in her care. I will follow with you. Dictated by... Dilshad Larsen/juanita TD: 03/08/2017 02:54 JOB #: [id number] CONSULTATION REPORT Page 1 of 1 X Neil Butcher MD X CONSULTATION REPORT
--- NOTE | ~2017-03-06 | CT16 ---
[facility] A Service of [facility] RADIOLOGY TEXT RESULTS PATIENT: MARIE ALEXANDRE LOCATION: [facility] 337-01 : [birth year] UNIT #: [id number] AGE: [address]: Melissa Estrada MD SEX: F ORDER DR: [id number] [facility] [address] [place], [place] [address] [id number] I MR#: [id number] Acc #: [id number] NAME: MARIE ALEXANDRE. : 1950 SEX: F STUDY DATE/TIME: 03/06/2017 17:22 [facility]: [facility] STUDY DESCRIPTION: CT Angio Chest for PE Attending Physician: Melissa Estrada M.D. Ordering Physician: Alexandre Rizzo M.D. Primary Care Physician: Carlos Ruiz M.D. MEDICAL IMAGING REPORT This report is preliminary unless electronic signature is present EXAM CT angiography chest for PE 03/06/2017 HISTORY No D-dimer ordered, short of air for 1 month. Prior breast cancer 2012. Left mastectomy. FINDINGS CT pulmonary angiography performed with intravenous administration of 80 mL Isovue-370. Comparison 01/31/2017. Three-dimensional reconstructions performed through pulmonary arteries. This CT examination was performed with one or more of the following radiation dose reduction techniques: automatic exposure control, adjustment of mA and/or kV according to patient size, and iterative reconstruction. Right-sided chest port unchanged. Stable postoperative changes of left mastectomy. Thyroid unchanged. Multiple small bilateral hypodense thyroid nodules stable. There is no axillary adenopathy. Precarinal hayden group measuring about 1.8 cm x 1.5 cm not significantly changed. Densely calcified aortopulmonary window nodes unchanged. The heart is borderline enlarged. Stable. There has been interval placement of a posterior right pleural drain which extends to the apex. The right effusion is slightly smaller than on prior examination. The decreased volume is relatively mild. There is no pneumothorax. There is no left effusion. There is some fluid extension into the major fissure. The liver again demonstrates metastatic disease with the largest visualized lesion in the hepatic dome. Unchanged. Smaller lesions elsewhere in the liver also not grossly changed. The gallbladder contains some high-density material likely concentrated bile. There are gallstones present. No evidence of gallbladder inflammation and no biliary ductal dilatation. The spleen, pancreas, adrenal glands and kidneys notable for exophytic probable complicated cyst posterior right kidney measuring 1.4 cm in diameter. It does not meet CT criteria for a simple cyst. It did not demonstrate abnormal metabolic activity on CT/PET scan dated 11/16/2016. No STS. [facility] A Service of [facility] RADIOLOGY TEXT RESULTS PATIENT: MARIE ALEXANDRE LOCATION: C3A 337-01 : [birth year] UNIT #: [id number] AGE: [address]: Melissa Estrada MD SEX: F ORDER DR: pathologic upper abdominal adenopathy seen. The esophagus, stomach, visualized small bowel and colon unremarkable. Two right apical pulmonary nodules, 1 measuring about 6 mm and the second measuring about 7-11 mm are not significantly changed from prior study. Previously noted 7 mm posterior right upper lobe pulmonary nodule not clearly evident on today's examination though it might be obscured by airspace disease. Attention at followup recommended. 7 mm subpleural nodule in the lateral aspect of the left upper lobe image number 59 unchanged from prior study. Subjacent to this, there is a new subpleural left lower lobe pulmonary nodule measuring about 8 mm in diameter. Short interval followup recommended. The dominant irregularly marginated lingular nodule currently measures about 6-10 mm, previously 7-12. Apparent change could reflect true decrease in size or differences in patient positioning. There is interlobular septal thickening at the lung apices and bases. There are more extensive patchy ground-glass densities in the bilateral upper and mid lung zones with more extensive mal airspace disease in the bilateral lower lung zones. The process appears bilateral and symmetric and most likely reflects worsening now moderate to severe pulmonary edema with interstitial airspace and right pleural space components. There is mild bronchiectasis in the bilateral pdi-ye-tlqee lung zones which is stable. The pulmonary arteries are well opacified. No PE. Note made of some mucous plugging in right upper lobe bronchi. No aortic aneurysm or dissection. Mixed lytic and blastic osseous metastatic lesions stable. No acute-appearing bony abnormality. IMPRESSION 1. No PE. No aortic aneurysm or dissection. 2. Compared to January 31, 2017, there has been a significant increase in what appears to be pulmonary edema. There are interstitial airspace and right pleural space components with a particular increase in airspace components in the bilateral lungs most pronounced xnc-sc-hywad lung zones. 3. Small right pleural effusion. There has been placement of a right pleural drain in the interval from prior study with a small decrease in volume of the pleural effusion. Please correlate with tube function and output. 4. Bilateral noncalcified pulmonary nodules. See specific sizes and locations in body of report above. These are largely not significantly changed from January 31, 2017 and are concerning for potential metastatic disease. There is a new 8 mm subpleural left lower lobe pulmonary nodule not seen on January 31. New metastatic disease is a consideration. This could be a focus of atypical atelectasis or a component of airspace edema. Attention at followup is recommended. 5. Hepatic metastatic disease not significantly changed. 6. Lytic and blastic skeletal metastatic disease not significantly STS. [facility] A Service of [facility] RADIOLOGY TEXT RESULTS PATIENT: MARIE ALEXANDRE LOCATION: A 337-01 : [birth year] UNIT #: [id number] AGE: [address]: Melissa Estrada MD SEX: F ORDER DR: changed. 7. Complicated right renal cyst. No change from prior CT/PET scan. 8. Please see remainder of ancillary findings in body of report above. Dictated by... Yandel Awad M.D. THIS IS AN ELECTRONICALLY VERIFIED REPORT Yandel Awad M.D. at 03/07/2017 6:17 PM ZARA/kulwant TD: 03/07/2017 06:36 JOB #: [id number] MEDICAL IMAGING REPORT Page 1 of 1 COPY
--- NOTE | ~2017-03-06 | CR72 ---
[facility] A Service of [facility] RADIOLOGY TEXT RESULTS PATIENT: MARIE ALEXANDRE LOCATION: [address]18 : [birth year] UNIT #: [id number] AGE: [address]: Melissa Estrada MD SEX: F ORDER DR: [id number] [facility] [address] [place], [place] [address] [id number] I MR#: [id number] Acc #: [id number] NAME: MARIE ALEXANDRE. : 1950 SEX: F STUDY DATE/TIME: 03/08/2017 7:25 UNIT: [facility] ROOM: [facility] STUDY DESCRIPTION: CR Chest Single View Portable Attending Physician: Melissa Estrada M.D. Ordering Physician: Jeffrey Moreno M.D. Primary Care Physician: Carlos Ruiz M.D. MEDICAL IMAGING REPORT This report is preliminary unless electronic signature is present EXAM Portable chest, 03/08. INDICATIONS Shortness of air for a week. Follow up infiltrates. COMPARISON 03/06. FINDINGS A portable view of the chest was obtained. Bilateral predominant perihilar infiltrates are present and they are much worse on the current study. Small right pleural effusion is visible. A Donr-J-Yuaxwsfi is present. There are postop changes in left shoulder. IMPRESSION Bilateral fairly diffuse infiltrates are present with a small right effusion and these have increased since 03/06/17. Dictated by... Andre Mosley M.D. THIS IS AN ELECTRONICALLY VERIFIED REPORT Andre Mosley M.D. at 03/08/2017 3:58 PM FEL/fracisco TD: 03/08/2017 09:58 JOB #: [id number] MEDICAL IMAGING REPORT Page 1 of 1 COPY
--- NOTE | ~2017-03-06 | CR72 ---
[facility] A Service of [facility] RADIOLOGY TEXT RESULTS PATIENT: MARIE ALEXANDRE LOCATION: [address]15 : [birth year] UNIT #: [id number] AGE: [address]: Melissa Estrada MD SEX: F ORDER DR: [id number] [facility] [address]. [place], [place] [address] [id number] I MR#: [id number] Acc #: [id number] NAME: MARIE ALEXANDRE : 1950 SEX: F STUDY DATE/TIME: 03/12/2017 7:04 UNIT: [facility] ROOM: [facility] STUDY DESCRIPTION: CR Chest Single View Portable Attending Physician: Melissa Estrada M.D. Ordering Physician: Melissa Estrada M.D. Primary Care Physician: Carlos Ruiz M.D. MEDICAL IMAGING REPORT This report is preliminary unless electronic signature is present EXAM AP portable chest DATE 03/12/2017 at 07:04 HISTORY 66-year-old female with respiratory failure and shortness of breath. On ventilator. Symptoms began 1 month ago. Additional history of hypertension and diabetes. COMPARISON AP portable chest 03/11/2017. FINDINGS Right chest tube extends to the apex. No definite pneumothorax is seen. Right chest wall satinder catheter extends to the lower SVC. Right arm approach PICC extends into the SVC. ET tube is in satisfactory position in the mid thoracic trachea. Dobbhoff tube extends below the diaphragm with the tip not included in the field of view. Small right pleural effusion is stable. Ill-defined interstitial type infiltrates within both lungs, with improved aeration compared to the prior study. Stable heart size. Benign calcified granulomatous changes in the mediastinum. Surgical screws are seen within the left humeral head. Degenerative endplate spurring in the thoracic spine. No acute osseous abnormality. IMPRESSION 1. Interstitial infiltrates seen throughout both lungs appear improved. Stable small right pleural effusion. 2. Supporting lines and tubes appear stable. No pneumothorax. Dictated by... Cristal Guallpa M.D. [facility] A Service of [facility] RADIOLOGY TEXT RESULTS PATIENT: MARIE ALEXANDRE LOCATION: [facility] CICCU3-15 : [birth year] UNIT #: [id number] AGE: [address]: Melissa Estrada MD SEX: F ORDER DR: THIS IS AN ELECTRONICALLY VERIFIED REPORT Cristal Guallpa M.D. at 03/13/2017 9:50 AM Madonna TD: 03/12/2017 11:06 JOB #: [id number] MEDICAL IMAGING REPORT Page 1 of 1 COPY
--- NOTE | ~2017-03-06 | FU ---
[facility] Nutrition Therapy DATE: 03/13/17 Patient: MARIE ALEXANDRE Physician: CHAS Address: [address] [place] [address] Room/Bed: [address], Zip: [place] [address] Admit Date: 03/06/17 Date of : [birth year] Height: 5 3 Weight: 225 102.5 NUTRITION MONITORING/FOLLOW-UP: Reason: NUTRITION F/U- PATIENT EXTUBATED Anthropometrics: HT: 63", WT: 225# (102KG), BMI: 39.7 Labs: 03/13/17- NA: 153, GLU: 283, BUN: 66, CREA: 1.5, CA: 6.9, ALB: 2.0, GFR: 35.7 Meds: NACL, VERSED, ZOSYN, 5% DEXTROSE, FUROSEMIDE, KCL I&O's:2378/3500 Skin: STG 2 P.U. TO BUTTOCKS Estimated Nutrition Needs: KCAL: [id number] KCAL/DAY (20-25KCAL/KG) PROTEIN: 102-122GM/KG (1.0-1.2GM/KG) FLUIDS: 1ML/KCAL OR PER MD ORDERS Assessment: PATIENT WAS EXTUBATED THIS MORNING. SHE CURRENTLY RECEIVES GLUCERNA 1.5 @ 30 ML/HR, WHICH IS HER GOAL RATE, AND SHE IS TOLERATING IT WELL. WILL INCREASE RATE D/T PATIENT OFF OF PROPOFOL. PATIENT'S DIET IS NOT ADVANCING ATT D/T HER WEAKNESS. PATIENT WAS VERY LETHARGIC DURING VISIT. SHE NODDED HER HEAD TO YES/NO QUESTIONS AND COULDN'T KEEP HER EYES OPEN. SHE DENIED ANY NAUSEA OR VOMITING. PLEASE SEE RECOMMENDATIONS BELOW Dx: INADEQUATE NUTRIENT INTAKE R/T CURRENT CONDITION AEB NPO STATUS, VENT - RESOLVED NEW DX: ALTERED NUTRIENT NEED R/T CURRENT CONDITION AEB NPO STATUS, NEED FOR ENTERAL NUTRITION Intervention: INCREASE ENTERAL NUTRITION, NPO DIET Monitoring, Evaluation and Goals: 1. PROVED 100% ESTIMATED NUTRIENT NEEDS - IN PROGRESS 2. PREVENT, CORRECT MICRO/MACRO NUTRIENT DEFICIENCIES - IN PROGRESS 3. INITIATE ENTERAL NUTRITION- MET GOAL 4. LABS WNL MONITOR: WEIGHTS, LABS, I/Os, ELECTROLYTES Recommendations: 1. ADVANCE CURRENT TF RATE OF GLUCERNA 1.5 BY 10ML Q 6 HOURS TO A GOAL RATE OF 60ML/HR, WHICH WILL MEET 100% OF PATIENT'S ESTIMATED NEEDS [facility] Nutrition Therapy DATE: 03/13/17 Patient: MARIE Cornelius BALDOMERO Physician: CHAS Address: [address] [place] [address] Room/Bed: [address], [facility] [id number] Admit Date: 03/06/17 Date of : [birth year] Height: 5 3 Weight: 225 102.5 -THIS PROVIDES: 2160 KCAL / 119 GM PROTEIN / 1094 ML WATER -ADD FREE WATER FLUSHES OF 180ML Q 4 HOURS OR PER MD ORDERS 2. RECOMMEND TO D/C PROSTAT 3. ONCE DIET ADVANCEMENT MEDICALLY FEASIBLE, RECOMMEND A REGULAR DIET TOLERATED Status: PATIENT IS AT A MILD/MODERATE NUTRITIONAL RISK Respectfully, AMARJIT THURSTON, NATHALIA, LD [facility] cc: client file
--- NOTE | ~2017-03-06 | A ---
[facility] Nutrition Therapy DATE: 03/07/17 Patient: MARIE ALEXANDRE Physician: CHAS Address: [address] [place] [address] Room/Bed: [address] [place] [address], Zip: [place] [address] Admit Date: 03/06/17 Date of : [birth year] Height: 5 3 Weight: 221 100.6 NUTRITIONAL ASSESSMENT: REASON: 3 NUTRITION RISK PT RE: WEIGHT LOSS + PRESSURE ULCER/NON-HEALING WOUND PT IS 66 Y.O. FEMALE ADMITTED FOR SEPSIS, PNA, RESPIRATORY FAILURE PMH: METASTATIC BREAST CA (MAY 2013), T2DM, HTN, HLD, COPD, ARTHRITIS, CHRONIC LIVER DISEASE, GERD Anthropometrics: 5'3", WT: 214# (PER PT) (97 KG), BMI: 37.9 Labs: GLU: 230, BUN: 26, CA++:7.0, ALB: 3.0, NA+:134, A1c: 6.2 (01/10/17) Meds: ZOSYN, NOVOLOG, SOLU-MEDROL, ZOFRAN, PROTONIX, FUROSEMIDE, NACL I/O & Bowel function: 710/2 Skin Integrity: STAGE 2 PRESSURE ULCER BUTTOCKS Assessment: CHART REVIEWED AND EVENTS NOTED. PT SEEN FOR 3 NUTRITION RISK SCREENING POINTS (WEIGHT LOSS + PRESSURE ULCER). PT SHORT OF BREATH WHEN COMMUNICATING WITH RD AT TIME OF VISIT. PT REPORTS DECREASED PO INTAKE 2' DECREASED APPETITE PAST 1-2 WEEKS. PT REPORTS LOSING ~10# PAST 3 WEEKS (4% WEIGHT LOSS). PT ADDS TO LOSING TOTAL ~40# BUT UNABLE TO KNOW TIMEFRAME. PT ADDS SHE TENDS TO ASPIRATE OCCASIONALLY ON LIQUIDS. PT USES THICKENER AT HOME IN LIQUIDS. PT HAD "THICK-IT" BOTTLE AT BEDSIDE. THIS RD ENCOURAGED SLOW GRADUAL PO INTAKE + SUPPLEMENT INTAKE, PT AGREED TO ENSURE PUDDING AND GLUCERNA SHAKE DAILY. PT REPORTED NO DIET QUESTIONS AT THIS TIME. RD TO FOLLOW. Dx: INADEQUATE PROTEIN-ENERGY INTAKE R/T DECREASED APPETITE, PMH, CURRENT CLINICAL CONDITION AEB PT REPORT ABOVE, NOTING ~4% WEIGHT LOSS IN PAST 3 WEEKS. Intervention: 1. REGULAR DIET 2. ENSURE PUDDING W/DINNER 3. GLUCERNA SHAKE W/DINNER Monitoring, Evaluation and Goals: 1. ORAL INTAKE; CONSUME/TOLERATE >50% OF MEALS AND SUPPLEMENTS 2. WEIGHTS; PROMOTE GRADUAL HEALTHY WEIGHT LOSS TOWARDS HEALTHY BMI; PREVENT UNINTENTIONAL WEIGHT LOSS 3. LABS; WNL: GLU, BUN, NA+ MONITOR: PER PROTOCOL, CRITERIA TO DETERMINE WHETHER GOALS ARE MET Recommendations: [facility] Nutrition Therapy DATE: 03/07/17 Patient: MARIE ALEXANDRE Physician: CHAS Address: [address] [place] [address] Room/Bed: [address] [place] [address], Zip: [place] [address] Admit Date: 03/06/17 Date of : [birth year] Height: 5 3 Weight: 221 100.6 1. PLEASE ORDER VANILLA ENSURE PUDDING W/DINNER MEAL 2. PLEASE ORDER STRAWBERRY GLUCERNA SHAKE W/DINNER MEAL (PER PT REQUEST) 3. CONSIDER ADDING MVI W/MINERAL DAILY + 200 MG VITAMIN C DAILY TO PROMOTE SKIN HEALING 4.CONTINUE CURRENT DIET ORDER ABOVE. IF PT CONSUMES >50%, RECOMMEND TO CHANGE CURRENT DIET ORDER TO CC/HH 2' PMH 5. CONSULT COMPOUNDING TECHNICIAN RE: CHRONIC ASPIRATION. PT THICKENS LIQUIDS AT HOME RD WILL F/U PER PROTOCOL PT IS MILD/MODERATELY COMPROMISED Respectfully, RODGER DEAN MS, RD, LD [facility] Nutrition[facility] Services [facility] cc: client file
--- NOTE | ~2017-03-06 | CR6 ---
[facility] A Service of [facility] & [facility] RADIOLOGY TEXT RESULTS PATIENT: MARIE ALEXANDRE LOCATION: [address] : [birth year] UNIT #: [id number] AGE: [address]: Melissa Estrada MD SEX: F ORDER DR: [id number] [facility] [address] [facility] [place], [place] [address] [id number] I MR#: [id number] Acc #: [id number] NAME: MARIE ALEXANDRE. : 1950 SEX: F STUDY DATE/TIME: 03/09/2017 13:10 UNIT: [facility] ROOM: [facility] STUDY DESCRIPTION: CR Abdomen Portable Sng View Attending Physician: Melissa Estrada M.D. Ordering Physician: Jeffrey Moreno M.D. Primary Care Physician: Carlos Ruiz M.D. MEDICAL IMAGING REPORT This report is preliminary unless electronic signature is present EXAM Portable abdomen 03/09/2017 1310 hours HISTORY Feeding tube placement, respiratory failure. COMPARISON Abdomen CT 09/14/2016 FINDINGS Supine view of the abdomen excludes the right flank. The flexible feeding tube has been advanced. The tip is directed rightward over the L2-3 disc space in the distal aspect of the stomach. Bowel gas pattern unremarkable. IMPRESSION Tip of the flexible feeding tube is directed rightward overlying the L2-3 disc space in the midline, in the distal stomach. Bowel gas pattern unremarkable. Dictated by... Jovana Taylor M.D. THIS IS AN ELECTRONICALLY VERIFIED REPORT Jovana Taylor M.D. at 03/10/2017 5:21 PM RADHA/jovi TD: 03/09/2017 17:17 JOB #: [id number] MEDICAL IMAGING REPORT Page 1 of 1 COPY
--- NOTE | ~2017-03-06 | CO ---
Unit #: [id number] #: [id number] Patient: MARIE CHRISTY [id number] [address] [address] [id number] I MR#: [id number] NAME: MARIE CHRISTY ROOM: [facility] Age: 66 Sex: F Admission Date: 03/06/2017 : 1950 Attending Physician: Melissa Estrada M.D. Primary Care Physician: Carlos Ruiz M.D. Consultation Date: 03/11/2017 CONSULTATION REPORT REASON FOR CONSULTATION Acute kidney injury. HISTORY OF PRESENT ILLNESS Ms. Marie Christy is a 66-year-old white female with metastatic breast cancer. The patient has a malignant right pleural effusion and has a right PleurX catheter. She was admitted on 03/06/2017 for increasing shortness of breath. CT angiogram in the ER was negative for pulmonary embolism. She has been diagnosed with MSSA pneumonia. Because of her acute hypoxic respiratory failure, she is now intubated and I am seeing her in the ICU. Her BUN and creatinine worsened today to 47 and 1.4. She has been receiving normal saline at 75 mL an hour along with some diuretic. PAST MEDICAL HISTORY 1. Metastatic breast cancer. 2. Some liver disease, possibly FISHER. 3. Hyperlipidemia. 4. Diabetes type 2. 5. Rheumatoid arthritis. 6. Right PleurX catheter. PAST SURGICAL HISTORY Mastectomy. FAMILY HISTORY Per chart is asthma. SOCIAL HISTORY The patient is a and does not smoke or drink. ALLERGIES Codeine, naproxen, and Lipitor. CURRENT MEDICATIONS Include Levemir 10 units, Solu-Medrol 40 mg IV q.6 hours, nafcillin sodium 2 g IV q.4 hours, Zosyn 3.375 g q.8 hours, normal saline 75 mL an hour, propofol drip for sedation, tube feeds, Protonix 40 mg daily IV, furosemide 40 mg q.12 hours IV, Lovenox 40 mg q.24 hours, Desyrel 100 mg q.h.s., Amitiza 24 mcg b.i.d. REVIEW OF SYSTEMS Unobtainable. PHYSICAL EXAMINATION Unit #: [id number] #: [id number] Patient: MARIE CHRISTY VITAL SIGNS: Temperature 98.2, blood pressure 108/55 ranging to 92/50, heart rate is 96 ranging to 83. She weighs 240 pounds. GENERAL: This is an ill-appearing white female. She has lost most of her hair. HEENT: Extraocular muscles are intact. No icterus or eye drainage. She has an endotracheal tube in place. NECK: Midline without JVD, thyromegaly, or lymphadenopathy. CHEST: Shows bilateral diminished breath sounds with a few expiratory wheezes. ABDOMEN: Obese and very soft, nontender, nondistended with positive bowel sounds. EXTREMITIES: Shows minimal edema. No cyanosis or clubbing. A Jay is anchored in place with yellow urine about 525 mL. DIAGNOSTIC STUDIES LABORATORY RESULTS: ABG; pH 7.427, pCO2 37, pO2 107, bicarbonate 24. Chemistry shows a BUN of 47, creatinine 1.4. Sodium 145, potassium 3.5, chloride 113, bicarbonate 22, phosphorus 3.6, albumin is 1.8. I do not see urinalysis. CBC shows a white blood cell count of 4.7, hemoglobin 8.9, platelet count 101. ASSESSMENT 1. Acute kidney injury, the etiology is unclear. The patient has had respiratory failure and sepsis syndrome likely on the basis of pneumonia. Sepsis syndrome could be contributing to her renal insufficiency. Additionally, she has been receiving antibiotics that may cause some renal toxicity. She received IV dye in the emergency room, but her renal function did not change within 24 hours, which I would have expected if she had a contrast nephropathy. But we could leave that in the differential. The patient does not appear overwhelmingly overloaded on exam. I agree with the normal saline. We could check a chest x-ray to see if congestive heart failure has developed. 2. Metastatic breast cancer. 3. Thrombocytopenia. 4. Methicillin-Sensitive Staphylococcus Aureus pneumonia, on nafcillin and Zosyn. PLAN At this point, I would continue the IV fluids. I do not think she appears wet. I also would like to check urinalysis to see if there is inflammation. She could be having problems with her antibiotic regimen causing allergic interstitial nephritis or some other problem. Also, renal ultrasound should be evaluated. Thank you very much for allowing me to see Ms. Christy in consultation. We will follow closely with you. Dictated by... Esther Rogers M.D. SARAH/juanita TD: 03/12/2017 12:48 JOB #: [id number] Unit #: [id number] #: [id number] Patient: MARIE CHRISTY CONSULTATION REPORT Page 1 of 1 X Esther Rogers MD CONSULTATION REPORT
--- NOTE | ~2017-03-06 | CR72 ---
[facility] A Service of [facility] & [facility] RADIOLOGY TEXT RESULTS PATIENT: MARIE ALEXANDRE LOCATION: [facility] 333-01 : [birth year] UNIT #: [id number] AGE: [address]: Melissa Estrada MD SEX: F ORDER DR: [id number] [facility] [address] [facility] [place] [facility]. [place], [place] [address] [id number] I MR#: [id number] Acc #: [id number] NAME: MARIE ALEXANDRE : 1950 SEX: F STUDY DATE/TIME: 03/16/2017 5:47 UNIT: [address] ROOM: [facility] STUDY DESCRIPTION: CR Chest Single View Portable Attending Physician: Melissa Estrada M.D. Ordering Physician: Bon Vickers M.D. Primary Care Physician: Carlos Ruiz M.D. MEDICAL IMAGING REPORT This report is preliminary unless electronic signature is present EXAM Portable chest INDICATION Shortness of air and weakness for 2 days. History of breast cancer. FINDINGS Today's portable view of the chest is compared with yesterday's study. The feeding tube is in the stomach. The PIC catheter and central venous catheter have their tips in the superior vena cava. There are low lung volumes with faint patchy bilateral infiltrates that are unchanged. Dictated by... Andre Mosley M.D. THIS IS AN ELECTRONICALLY VERIFIED REPORT Andre Mosley M.D. at 03/16/2017 1:48 PM FRANCE/kulwant TD: 03/16/2017 10:40 JOB #: [id number] MEDICAL IMAGING REPORT Page 1 of 1 COPY
--- NOTE | ~2017-03-06 | CR72 ---
[facility] A Service of [facility] & [facility] RADIOLOGY TEXT RESULTS PATIENT: MARIE ALEXANDRE LOCATION: [address]15 : [birth year] UNIT #: [id number] AGE: [address]: Melissa Estrada MD SEX: F ORDER DR: [id number] [facility] [address] [facility]. [place], [place] [address] [id number] I MR#: [id number] Acc #: [id number] NAME: MARIE ALEXANDRE : 1950 SEX: F STUDY DATE/TIME: 03/09/2017 5:47 UNIT: [facility] ROOM: [facility] STUDY DESCRIPTION: CR Chest Single View Portable Attending Physician: Melissa Estrada M.D. Ordering Physician: Bon Vickers M.D. Primary Care Physician: Carlos Ruiz M.D. MEDICAL IMAGING REPORT This report is preliminary unless electronic signature is present EXAM Portable AP view of the chest. COMPARISON March 08, 2017 at 04:35 p.m. and 7:25 a.m. as well as March 06, 2017. HISTORY Patient is a 66-year-old female with dyspnea for 1 month. Respiratory failure requiring ventilatory support. History of hypertension. FINDINGS/IMPRESSION Endotracheal tube appears adequately positioned, grossly stable. Internal jugular approach chest port catheter again noted with the tip terminating just above the cavoatrial junction. Apically oriented right chest tube. No convincing evidence of pneumothorax. There is stable small right pleural effusion along the right lateral chest wall. There may be stable trace left pleural effusion. Somewhat patchy interstitial and alveolar opacities are noted bilaterally, stable in the right lung and slightly improved in the lingula and left upper lobe. Findings may reflect any combination of pulmonary edema, atelectasis or pneumonia. Grossly stable cardiomediastinal silhouette. Calcified granulomas in the AP window, fixation hardware in the proximal left humerus appears intact, not well evaluated on this study. Dictated by... Abelino Laguerre M.D. THIS IS AN ELECTRONICALLY VERIFIED REPORT Abelino Laguerre M.D. at 03/10/2017 8:56 PM BLM/gz [facility] A Service of [facility] & [facility] RADIOLOGY TEXT RESULTS PATIENT: MARIE ALEXANDRE LOCATION: [facility] CICCU3-15 : [birth year] UNIT #: [id number] AGE: [address]: Melissa Estrada MD SEX: F ORDER DR: TD: 03/09/2017 08:58 JOB #: [id number] MEDICAL IMAGING REPORT Page 1 of 1 COPY
--- NOTE | ~2017-03-06 | CR72 ---
[facility] A Service of [facility] & [facility] RADIOLOGY TEXT RESULTS PATIENT: MARIE ALEXANDRE LOCATION: [facility] 333-01 : [birth year] UNIT #: [id number] AGE: [address]: Melissa Estrada MD SEX: F ORDER DR: [id number] [facility] [address] [facility] [place], [place] [address] [id number] I MR#: [id number] Acc #: [id number] NAME: MARIE ALEXANDRE : 1950 SEX: F STUDY DATE/TIME: 03/15/2017 21:10 UNIT: [address] ROOM: [facility] STUDY DESCRIPTION: CR Chest Single View Portable Attending Physician: Melissa Estrada M.D. Ordering Physician: Melissa Estrada M.D. Primary Care Physician: Carlos Ruiz M.D. MEDICAL IMAGING REPORT This report is preliminary unless electronic signature is present EXAM Portable chest, 03/15 21:10 INDICATION Shortness of air, sepsis, weakness. History of breast cancer. FINDINGS AP portable chest is compared with 03/15/2017 at 16:28 hours. Tubes and lines unchanged. Feeding tube in the stomach. Heart size stable. Small bilateral pleural effusions are stable. Diffuse bilateral infiltrates with a osn-ii-dwxus lung predominance are again seen. They are probably slightly worsened allowing for differences in technique. No pneumothorax. Dictated by... Nick Telles Jr., M.D. THIS IS AN ELECTRONICALLY VERIFIED REPORT Nick Telles Jr., M.D. at 03/19/2017 7:11 AM KEISHA/mindy TD: 03/16/2017 08:29 JOB #: [id number] MEDICAL IMAGING REPORT Page 1 of 1 COPY
--- NOTE | ~2017-03-06 | CR72 ---
[facility] A Service of [facility] RADIOLOGY TEXT RESULTS PATIENT: MARIE ALEXANDRE LOCATION: [facility]3-15 : [birth year] UNIT #: [id number] AGE: [address]: Melissa Estrada MD SEX: F ORDER DR: [id number] [address] [place] [id number] [facility]. [place], [place] [address] [id number] I MR#: [id number] Acc #: [id number] NAME: MARIE ALEXANDRE. : 1950 SEX: F STUDY DATE/TIME: UNIT: [facility] ROOM: [facility] STUDY DESCRIPTION: CR Chest Single View Portable Attending Physician: Melissa Estrada M.D. Ordering Physician: Melissa Estrada M.D. Primary Care Physician: Carlos Ruiz M.D. MEDICAL IMAGING REPORT This report is preliminary unless electronic signature is present EXAM Chest portable 03/09/2017 1305 hours HISTORY Patient with respiratory failure, on ventilator support. Abdominal pain. Support equipment location. COMPARISON STUDIES 03/09/2017 0547 hours. FINDINGS Portable upright chest demonstrates stable endotracheal tube, right central venous port catheter, right chest tube. Diffuse bilateral airspace changes are again seen, slightly more focal in the right middle lung medially. There is stable right effusion. No pneumothorax. There is an enteric tube present with tip terminating over the distal esophagus. IMPRESSION 1. There is an enteric tube present terminating over the distal thoracic spine and the distal esophagus, above the GE junction. Support equipment otherwise unchanged. 2. Persistent bilateral airspace changes, more focal in the right perihilar region. Stable right effusion. No pneumothorax. Dictated by... Jovana Taylor M.D. THIS IS AN ELECTRONICALLY VERIFIED REPORT Jovana Taylor M.D. at 03/10/2017 5:21 PM RADHA/thuy TD: 03/09/2017 17:24 JOB #: [id number] [facility] A Service of [facility] RADIOLOGY TEXT RESULTS PATIENT: MARIE ALEXANDRE LOCATION: [address]15 : [birth year] UNIT #: [id number] AGE: [address]: Melissa Estrada MD SEX: F ORDER DR: MEDICAL IMAGING REPORT Page 1 of 1 COPY
--- NOTE | ~2017-03-06 | OR ---
Unit #: [id number] #: [id number] Patient: MARIE ALEXANDRE [id number] [address] [place], [place] [address] [id number] I MR#: [id number] NAME: MARIE ALEXANDRE ROOM: 333 Date of Procedure: 03/15/2017 Admission Date: 03/06/2017 Surgeon: Richard Hobbs M.D. : 1950 Attending Physician: Melissa Estrada M.D. Primary Care Physician: Carlos Ruiz M.D. OPERATIVE REPORT PREOPERATIVE DIAGNOSES The patient has acute hypoxic respiratory failure and acute renal failure on a background of metastatic breast cancer. She has been having significant signs of aspiration pneumonia. A modified swallow study and video swallow are pending. PROCEDURES PERFORMED Upper gastrointestinal endoscopy and biopsy. POSTOPERATIVE DIAGNOSES 1. The patient had no stricture or esophagitis and the entire esophagus being normal. 2. There was evidence of superficial hemorrhagic diffuse gastritis. A biopsy was obtained from the antrum for CLOtest. 3. Rest of the examination up to third part of duodenum was normal. 4. The patient had clearcut signs of aspiration, not able to handle her pharyngeal and oropharyngeal secretions. RECOMMENDATIONS 1. Can resume Dobbhoff tube feeds. 2. Please request speech pathology to go head and do the video swallow study today any time after 11:00 a.m. 3. The patient will most certainly need PEG placement. This will be discussed at length with the patient's son, Darci, coming to visit her later today. SEDATION USED MAC. DESCRIPTION OF PROCEDURE Following detailed explanation of the potential risks and complications of an upper endoscopy, namely perforation, bleeding, and complications related to sedation, the patient was brought to GI lab and laid in the left lateral decubitus position. Lubricated tip of the Olympus video upper endoscope was passed through bite block into the proximal esophagus under direct vision. The entire esophageal mucosa was examined and appeared normal. Z-line was nicely demarcated, there being no esophagitis or hiatus hernia. The scope was then advanced into the gastric cavity and the latter was insufflated. Mucosa of the fundus, body, and antrum examined. The patient was noted to have diffuse superficial hemorrhagic gastritis involving the antral mucosa. No ulcers were seen. Pylorus was intubated with visualization of the normal duodenal bulb and second and Unit #: [id number] #: [id number] Patient: MARIE ALEXANDRE third part of the duodenum. Upon withdrawal and retroflexion, incisura, cardia, and greater curve examined and no additional findings noted. The scope was then withdrawn in the distal esophagus. The entire esophageal mucosa was examined all the way up to pharynx. No additional findings noted. The patient did have significant secretions in the oropharynx and was having clearcut signs of aspiration during the procedure. The oropharynx was thoroughly suctioned and the scope was withdrawn. The patient returned to the recovery area. She tolerated the procedure without any postprocedure complications. Dictated by... Dilshad Bravo/juanita TD: 03/15/2017 09:10 JOB #: [id number] CC: Dilshad Larsen M.D. OPERATIVE REPORT Page 1 of 1 X Richard Hobbs MD X PROCEDURE OPERATIVE NOTE
[~2017-03-06 14:10] MED LIST changes: -(NONE)2.5 MG PO; -ACID REDUCER20 MG PO; -ALBUTEROL17 GM INH; -AMITIZA24 MCG PO; -LOMOTIL WHITE2.5 M1 PO; -METFORMIN PO; -PREDNISONE PO; -ZANAFLEX PO; -ZOFRAN8 MG PO
[2017-03-06 14:50] LABS: BASOPHIL# 0.1 X10e3 (0-0.3); BASOPHIL% 0.6 % (0-2.5); EOSINOPHIL% 0.1 % (0.0-7.0); HEMATOCRIT 35.8 % (35.0-45.0); HEMOGLOBIN 11.5 gm/dL (12.0-16.0); LYMPHOCYTE# 0.3 X10e3 (1.0-3.5); LYMPHOCYTE% 2.8 % (17.0-45.0); MEAN CELL VOLUME 85.6 FL (83-96); MEAN CORPUSCULAR HEMOGLOBIN 27.5 PG (28-34); MEAN CORPUSCULAR HGB CONC 32.1 g/dL (30-36); MEAN PLATELET VOLUME 7.5 FL (6.5-11.5); MONOCYTE# 0.5 X10e3 (0-1.0); NEUTROPHIL# 8.2 X10e3 (1.5-7.1); NEUTROPHIL% 90.5 % (40-75); PLATELET COUNT 132 X10e3 (140-420); RED BLOOD COUNT 4.19 X10e (3.90-5.30); RED CELL DISTRIBUTION WIDTH 18.7 % (11.0-15.5)
[2017-03-06 14:51] LABS: ARTERIAL BLD GAS O2 SATURATION 93.8 % (90.0-100.0); ARTERIAL BLOOD GAS CARBOXY HB 1.4 %sat (0.0-9.0); ARTERIAL BLOOD GAS HCO3 24.4 mmol/L; ARTERIAL BLOOD GAS MET HB 0.6 %sat (0.0-2.0); ARTERIAL BLOOD GAS PCO2 37.6 mmHg (35.0-45.0)
[2017-03-06 14:52] LABS: ARTERIAL BLOOD GAS ALLEN TEST NORMAL; ARTERIAL BLOOD GAS ART SITE RIGHT RADIAL; ARTERIAL BLOOD GAS DELIVERY NASAL CANNULA; ARTERIAL BLOOD GAS PO2 76.4 mmHg (80.0-100); ARTERIAL DRAW? YES
[2017-03-06 14:53] LABS: DIFF IND NO
[2017-03-06 15:05] LABS: POC - CKMB 1.4 ng/mL (0.0-7.9); POC - TROPONIN <0.05 ng/mL (<=0.05)
[2017-03-06 15:06] LABS: INR 1.3; PARTIAL THROMBOPLASTIN TIME 27.1 SECONDS (23.5-31.3); PROTHROMBIN TIME (PATIENT) 13.8 SECONDS (10.0-11.7)
[2017-03-06 15:18] LABS: BILIRUBIN, DIRECT 0.5 mg/dL (0.0-0.2); BILIRUBIN,TOTAL 1.5 mg/dL (0.2-2.0); BUN/CREATININE RATIO 26.36; CALCIUM SERUM 8.3 mg/dL (8.4-10.2); CREATININE SERUM 1.1 mg/dL (0.6-1.4); GLOM FILT RATE Estimated 51.9 mL/min (>60); POTASSIUM 3.4 mmol/L (3.5-5.1); PROTEIN TOTAL SERUM 6.7 g/dL (6.0-8.3)
[2017-03-06] MEDS ORDERED: ACID REDUCER20 MG PO (16:51)
[2017-03-06] MEDS ORDERED: PREDNISONE PO (16:52)
[2017-03-06] MEDS ORDERED: TRAZODONE HCL100 MG PO (16:52)
[2017-03-06] MEDS ORDERED: ZANAFLEX PO (16:52)
[2017-03-06] MEDS ORDERED: (NONE)2.5 MG PO (16:52)
[2017-03-06] MEDS ORDERED: LOMOTIL WHITE2.5 M1 PO (16:52)
[2017-03-06] MEDS ORDERED: LASIX20 MG PO (16:52)
[2017-03-06] MEDS ORDERED: METFORMIN PO (16:53)
[2017-03-06] MEDS ORDERED: ZOFRAN8 MG PO (16:53)
[2017-03-06] MEDS ORDERED: AMITIZA24 MCG PO (16:53)
[2017-03-06] MEDS ORDERED: BREO ELLIPTA 11 EACH INH (16:53)
[2017-03-06] MEDS ORDERED: ALBUTEROL17 GM INH (16:53)
[2017-03-06 17:15] LABS: POC - CKMB 1.2 ng/mL (0.0-7.9); POC - TROPONIN <0.05 ng/mL (<=0.05)
[2017-03-07 07:20] LABS: HEMATOCRIT 28.9 % (35.0-45.0); MEAN CELL VOLUME 86.2 FL (83-96); MEAN CORPUSCULAR HEMOGLOBIN 27.1 PG (28-34); MEAN CORPUSCULAR HGB CONC 31.4 g/dL (30-36); MEAN PLATELET VOLUME 7.8 FL (6.5-11.5); RED BLOOD COUNT 3.35 X10e (3.90-5.30); RED CELL DISTRIBUTION WIDTH 18.3 % (11.0-15.5)
[2017-03-07 07:22] LABS: HEMOGLOBIN 9.1 gm/dL (12.0-16.0)
[2017-03-07 08:03] LABS: BUN/CREATININE RATIO 28.88; CREATININE SERUM 0.9 mg/dL (0.6-1.4); GLOM FILT RATE Estimated 66.2 mL/min (>60); POTASSIUM 4.2 mmol/L (3.5-5.1)
[2017-03-08 05:57] LABS: BASOPHIL% 0.2 % (0-2.5); HEMATOCRIT 29.7 % (35.0-45.0); HEMOGLOBIN 9.9 gm/dL (12.0-16.0); LYMPHOCYTE# 0.2 X10e3 (1.0-3.5); LYMPHOCYTE% 2.2 % (17.0-45.0); MEAN CELL VOLUME 85.2 FL (83-96); MEAN CORPUSCULAR HEMOGLOBIN 28.5 PG (28-34); MEAN CORPUSCULAR HGB CONC 33.5 g/dL (30-36); MEAN PLATELET VOLUME 7.7 FL (6.5-11.5); MONOCYTE# 0.2 X10e3 (0-1.0); MONOCYTE% 2.2 % (3.0-12.0); NEUTROPHIL# 8.6 X10e3 (1.5-7.1); NEUTROPHIL% 95.4 % (40-75); PLATELET COUNT 119 X10e3 (140-420); RED BLOOD COUNT 3.49 X10e (3.90-5.30); RED CELL DISTRIBUTION WIDTH 18.4 % (11.0-15.5)
[2017-03-08 06:15] LABS: DIFF IND NO
[2017-03-08 06:43] LABS: BUN/CREATININE RATIO 27.77; CALCIUM SERUM 7.4 mg/dL (8.4-10.2); CREATININE SERUM 0.9 mg/dL (0.6-1.4); GLOM FILT RATE Estimated 66.2 mL/min (>60); POTASSIUM 4.1 mmol/L (3.5-5.1)
[2017-03-08 06:52] LABS: ARTERIAL BLD GAS O2 SATURATION 84.3 % (90.0-100.0); ARTERIAL BLOOD GAS HCO3 21.9 mmol/L; ARTERIAL BLOOD GAS MET HB 0.6 %sat (0.0-2.0); ARTERIAL BLOOD GAS PCO2 35.8 mmHg (35.0-45.0); ARTERIAL BLOOD GAS pH 7.394 (7.350-7.450)
[2017-03-08 06:54] LABS: ARTERIAL BLOOD GAS PO2 51.9 mmHg (80.0-100)
[2017-03-08 06:55] LABS: ARTERIAL BLOOD GAS ALLEN TEST Y; ARTERIAL BLOOD GAS ART SITE RIGHT RADIAL; ARTERIAL BLOOD GAS DELIVERY NASAL CANNULA; ARTERIAL DRAW? YES
[2017-03-08 17:00] LABS: ARTERIAL BLD GAS O2 SATURATION 98.9 % (90.0-100.0); ARTERIAL BLOOD GAS CARBOXY HB 0.5 %sat (0.0-9.0); ARTERIAL BLOOD GAS HCO3 22.9 mmol/L; ARTERIAL BLOOD GAS MET HB 0.8 %sat (0.0-2.0); ARTERIAL BLOOD GAS PCO2 41.1 mmHg (35.0-45.0); ARTERIAL BLOOD GAS pH 7.354 (7.350-7.450)
[2017-03-08 17:01] LABS: ARTERIAL BLOOD GAS ART SITE RIGHT BRACHIAL; ARTERIAL BLOOD GAS DELIVERY VENT; ARTERIAL BLOOD GAS VENT MODE AC; ARTERIAL DRAW? YES
[2017-03-09 03:55] LABS: ARTERIAL BLD GAS O2 SATURATION 97.9 % (90.0-100.0); ARTERIAL BLOOD GAS CARBOXY HB 0.8 %sat (0.0-9.0); ARTERIAL BLOOD GAS HCO3 23.5 mmol/L; ARTERIAL BLOOD GAS MET HB 0.6 %sat (0.0-2.0); ARTERIAL BLOOD GAS PCO2 45.5 mmHg (35.0-45.0); ARTERIAL BLOOD GAS pH 7.321 (7.350-7.450)
[2017-03-09 03:57] LABS: ARTERIAL BLOOD GAS ALLEN TEST NORMAL; ARTERIAL BLOOD GAS ART SITE RIGHT RADIAL; ARTERIAL BLOOD GAS DELIVERY VENT; ARTERIAL BLOOD GAS VENT MODE AC; ARTERIAL DRAW? YES
[2017-03-09 05:34] LABS: BASOPHIL% 0.2 % (0-2.5); HEMATOCRIT 30.6 % (35.0-45.0); HEMOGLOBIN 9.8 gm/dL (12.0-16.0); LYMPHOCYTE# 0.1 X10e3 (1.0-3.5); MEAN CELL VOLUME 86.1 FL (83-96); MEAN CORPUSCULAR HEMOGLOBIN 27.6 PG (28-34); MEAN PLATELET VOLUME 7.7 FL (6.5-11.5); MONOCYTE# 0.3 X10e3 (0-1.0); MONOCYTE% 2.3 % (3.0-12.0); NEUTROPHIL# 11.6 X10e3 (1.5-7.1); NEUTROPHIL% 96.5 % (40-75); PLATELET COUNT 147 X10e3 (140-420); RED BLOOD COUNT 3.56 X10e (3.90-5.30); RED CELL DISTRIBUTION WIDTH 18.5 % (11.0-15.5)
[2017-03-09 05:50] LABS: DIFF IND NO
[2017-03-09 07:09] LABS: ALBUMIN SERUM 2.1 g/dL (3.5-5.0); BILIRUBIN,TOTAL 0.8 mg/dL (0.2-2.0); BUN/CREATININE RATIO 28.88; CALCIUM SERUM 6.6 mg/dL (8.4-10.2); CREATININE SERUM 0.9 mg/dL (0.6-1.4); GLOM FILT RATE Estimated 66.2 mL/min (>60); POTASSIUM 3.1 mmol/L (3.5-5.1)
[2017-03-09 07:29] LABS: LEGIONELLA AG URINE NEG (NEG)
[2017-03-09 13:11] LABS: BODY FLUID SOURCE BRONCHIAL LAVAGE
[2017-03-09 13:12] LABS: BF TOTAL NUCLEATED CELL COUNT 335 CMM (0-100); BODY FLUID APPEARANCE CLEAR; BODY FLUID RBC <10000 CMM
[2017-03-10 04:33] LABS: ARTERIAL BLD GAS O2 SATURATION 97.9 % (90.0-100.0); ARTERIAL BLOOD GAS CARBOXY HB 0.6 %sat (0.0-9.0); ARTERIAL BLOOD GAS HCO3 24.2 mmol/L; ARTERIAL BLOOD GAS MET HB 0.7 %sat (0.0-2.0); ARTERIAL BLOOD GAS PCO2 41.3 mmHg (35.0-45.0); ARTERIAL BLOOD GAS pH 7.377 (7.350-7.450)
[2017-03-10 04:39] LABS: ARTERIAL BLOOD GAS ALLEN TEST NORMAL; ARTERIAL DRAW? YES
[2017-03-10 04:40] LABS: ARTERIAL BLOOD GAS ART SITE RIGHT RADIAL; ARTERIAL BLOOD GAS DELIVERY VENT; ARTERIAL BLOOD GAS VENT MODE AC
[2017-03-10 05:40] LABS: BASOPHIL% 0.4 % (0-2.5); HEMATOCRIT 29.6 % (35.0-45.0); HEMOGLOBIN 9.5 gm/dL (12.0-16.0); LYMPHOCYTE# 0.1 X10e3 (1.0-3.5); LYMPHOCYTE% 1.2 % (17.0-45.0); MEAN CELL VOLUME 86.2 FL (83-96); MEAN CORPUSCULAR HEMOGLOBIN 27.7 PG (28-34); MEAN CORPUSCULAR HGB CONC 32.2 g/dL (30-36); MEAN PLATELET VOLUME 7.5 FL (6.5-11.5); MONOCYTE# 0.1 X10e3 (0-1.0); MONOCYTE% 1.8 % (3.0-12.0); NEUTROPHIL# 7.9 X10e3 (1.5-7.1); NEUTROPHIL% 96.6 % (40-75); PLATELET COUNT 124 X10e3 (140-420); RED BLOOD COUNT 3.43 X10e (3.90-5.30); RED CELL DISTRIBUTION WIDTH 18.7 % (11.0-15.5); WHITE BLOOD COUNT 8.2 X10e3 (4.0-10.5)
[2017-03-10 05:45] LABS: DIFF IND NO
[2017-03-10 06:13] LABS: ALBUMIN SERUM 2.1 g/dL (3.5-5.0); BILIRUBIN,TOTAL 1.9 mg/dL (0.2-2.0); BUN/CREATININE RATIO 27.27; CREATININE SERUM 1.1 mg/dL (0.6-1.4); GLOM FILT RATE Estimated 51.9 mL/min (>60); POTASSIUM 3.1 mmol/L (3.5-5.1); PROTEIN TOTAL SERUM 5.3 g/dL (6.0-8.3)
[2017-03-11 04:18] LABS: ARTERIAL BLD GAS O2 SATURATION 98.9 % (90.0-100.0); ARTERIAL BLOOD GAS ART SITE RIGHT BRACHIAL; ARTERIAL BLOOD GAS CARBOXY HB 0.7 %sat (0.0-9.0); ARTERIAL BLOOD GAS DELIVERY VENT; ARTERIAL BLOOD GAS HCO3 24.4 mmol/L; ARTERIAL BLOOD GAS MET HB 0.8 %sat (0.0-2.0); ARTERIAL BLOOD GAS PCO2 37.1 mmHg (35.0-45.0); ARTERIAL BLOOD GAS VENT MODE AC; ARTERIAL BLOOD GAS pH 7.427 (7.350-7.450); ARTERIAL DRAW? YES
[2017-03-11 06:34] LABS: BASOPHIL% 0.2 % (0-2.5); HEMATOCRIT 27.2 % (35.0-45.0); HEMOGLOBIN 8.9 gm/dL (12.0-16.0); LYMPHOCYTE# 0.1 X10e3 (1.0-3.5); LYMPHOCYTE% 2.9 % (17.0-45.0); MEAN CELL VOLUME 85.5 FL (83-96); MEAN CORPUSCULAR HGB CONC 32.7 g/dL (30-36); MEAN PLATELET VOLUME 8.1 FL (6.5-11.5); MONOCYTE# 0.1 X10e3 (0-1.0); MONOCYTE% 2.1 % (3.0-12.0); NEUTROPHIL# 4.4 X10e3 (1.5-7.1); NEUTROPHIL% 94.8 % (40-75); PLATELET COUNT 101 X10e3 (140-420); RED BLOOD COUNT 3.18 X10e (3.90-5.30); RED CELL DISTRIBUTION WIDTH 18.6 % (11.0-15.5); WHITE BLOOD COUNT 4.7 X10e3 (4.0-10.5)
[2017-03-11 06:36] LABS: DIFF IND NO
[2017-03-11 07:12] LABS: ALBUMIN SERUM 1.8 g/dL (3.5-5.0); BILIRUBIN,TOTAL 2.1 mg/dL (0.2-2.0); BUN/CREATININE RATIO 33.57; CREATININE SERUM 1.4 mg/dL (0.6-1.4); GLOM FILT RATE Estimated 38.8 mL/min (>60); MAGNESIUM 1.7 mg/dL (1.6-3.0); PHOSPHOROUS 3.6 mg/dL (2.5-4.6); POTASSIUM 3.5 mmol/L (3.5-5.1); PROTEIN TOTAL SERUM 4.9 g/dL (6.0-8.3)
[2017-03-11 07:17] LABS: IRON SERUM 64 ug/dL (28-170); TOTAL IRON BINDING CAPACITY 128 ug/dL (269-535); TRANSFERRIN 92 mg/dL (192-382); TRANSFERRIN SATURATION 50 % (20-50)
[2017-03-11 07:19] LABS: THYROID STIMULATING HORMONE 0.05 uIU/ml (0.34-5.60)
[2017-03-11 07:28] LABS: FERRITIN 1054 ng/mL (11-307)
[2017-03-11 22:55] LABS: URINE APPEARANCE CLOUDY; URINE BILIRUBIN NEG (NEG); URINE BLOOD 3+ (NEG); URINE COLOR YELLOW; URINE GLUCOSE NEG (NEG); URINE KETONE NEG (NEG); URINE LEUKOCYTE ESTERASE 2+ (NEG); URINE NITRATE NEG (NEG); URINE PROTEIN TRACE (NEG); URINE SPECIFIC GRAVITY 1.016 (1.003-1.035)
[2017-03-11 22:58] LABS: CULTURE INDICATED? YES; URBCS1 AUWI INNUM /[HPF] (0-2); URINE BACTERIA AUWI NEG (NEGATIVE); URINE SQUAMOUS EPITHELIAL CELL NONE SEEN /[HPF]; UWBCS1 AUWI 100-200 (0-5)
[2017-03-11 23:20] LABS: URINE CRYSTALS URIC ACID /[HPF]; URINE YEAST PRESENT
[2017-03-12 05:01] LABS: BASOPHIL% 0.4 % (0-2.5); DIFF IND YES; HEMATOCRIT 28.5 % (35.0-45.0); HEMOGLOBIN 9.1 gm/dL (12.0-16.0); LYMPHOCYTE# 0.2 X10e3 (1.0-3.5); LYMPHOCYTE% 2.1 % (17.0-45.0); MEAN CELL VOLUME 86.4 FL (83-96); MEAN CORPUSCULAR HEMOGLOBIN 27.6 PG (28-34); MEAN PLATELET VOLUME 8.2 FL (6.5-11.5); MONOCYTE# 0.2 X10e3 (0-1.0); MONOCYTE% 2.6 % (3.0-12.0); NEUTROPHIL# 7.1 X10e3 (1.5-7.1); NEUTROPHIL% 94.9 % (40-75); PLATELET COUNT 116 X10e3 (140-420); RED CELL DISTRIBUTION WIDTH 19.3 % (11.0-15.5); WHITE BLOOD COUNT 7.5 X10e3 (4.0-10.5)
[2017-03-12 05:16] LABS: ALBUMIN SERUM 1.8 g/dL (3.5-5.0); BILIRUBIN,TOTAL 2.2 mg/dL (0.2-2.0); CALCIUM SERUM 6.5 mg/dL (8.4-10.2); CREATININE SERUM 1.6 mg/dL (0.6-1.4); PHOSPHOROUS 4.4 mg/dL (2.5-4.6); POTASSIUM 3.4 mmol/L (3.5-5.1); PROTEIN TOTAL SERUM 5.1 g/dL (6.0-8.3); URIC ACID 7.2 mg/dL (2.6-7.2)
[2017-03-12 05:19] LABS: ANISOCYTOSIS MOD; OVALOCYTES PRESENT; PLATELET ESTIMATE DECREASED (NORMAL); TEAR DROP CELLS PRESENT
[2017-03-13 05:13] LABS: BASOPHIL% 0.2 % (0-2.5); HEMATOCRIT 29.5 % (35.0-45.0); HEMOGLOBIN 9.6 gm/dL (12.0-16.0); LYMPHOCYTE# 0.2 X10e3 (1.0-3.5); LYMPHOCYTE% 2.3 % (17.0-45.0); MEAN CELL VOLUME 86.6 FL (83-96); MEAN CORPUSCULAR HEMOGLOBIN 28.1 PG (28-34); MEAN CORPUSCULAR HGB CONC 32.4 g/dL (30-36); MEAN PLATELET VOLUME 8.2 FL (6.5-11.5); MONOCYTE# 0.2 X10e3 (0-1.0); MONOCYTE% 2.5 % (3.0-12.0); NEUTROPHIL# 8.7 X10e3 (1.5-7.1); PLATELET COUNT 112 X10e3 (140-420); RED BLOOD COUNT 3.41 X10e (3.90-5.30); RED CELL DISTRIBUTION WIDTH 19.2 % (11.0-15.5); WHITE BLOOD COUNT 9.1 X10e3 (4.0-10.5)
[2017-03-13 05:45] LABS: DIFF IND NO
[2017-03-13 06:01] LABS: BILIRUBIN,TOTAL 2.2 mg/dL (0.2-2.0); CALCIUM SERUM 6.9 mg/dL (8.4-10.2); CREATININE SERUM 1.5 mg/dL (0.6-1.4); GLOM FILT RATE Estimated 35.7 mL/min (>60); POTASSIUM 3.5 mmol/L (3.5-5.1); PROTEIN TOTAL SERUM 5.4 g/dL (6.0-8.3)
[2017-03-13 08:34] LABS: ARTERIAL BLD GAS O2 SATURATION 96.7 % (90.0-100.0); ARTERIAL BLOOD GAS ALLEN TEST NORMAL; ARTERIAL BLOOD GAS ART SITE RIGHT RADIAL; ARTERIAL BLOOD GAS CARBOXY HB 0.8 %sat (0.0-9.0); ARTERIAL BLOOD GAS DELIVERY VENT; ARTERIAL BLOOD GAS HCO3 26.9 mmol/L; ARTERIAL BLOOD GAS MET HB 0.9 %sat (0.0-2.0); ARTERIAL BLOOD GAS PCO2 43.5 mmHg (35.0-45.0); ARTERIAL BLOOD GAS VENT MODE CPAP; ARTERIAL DRAW? YES
[2017-03-13 12:09] LABS: URINE APPEARANCE CLOUDY; URINE BILIRUBIN NEG (NEG); URINE BLOOD 3+ (NEG); URINE COLOR YELLOW; URINE GLUCOSE NEG (NEG); URINE KETONE NEG (NEG); URINE LEUKOCYTE ESTERASE 3+ (NEG); URINE NITRATE NEG (NEG); URINE PROTEIN TRACE (NEG); URINE SPECIFIC GRAVITY 1.015 (1.003-1.035); URINE UROBILINOGEN 0.2 MG/DL (NEG)
[2017-03-13 12:11] LABS: URBCS1 AUWI 100-200 /[HPF] (0-2); URINE BACTERIA AUWI NEG (NEGATIVE); URINE SQUAMOUS EPITHELIAL CELL NONE SEEN /[HPF]; UWBCS1 AUWI 100-200 (0-5)
[2017-03-13 12:22] LABS: URINE YEAST PRESENT
[2017-03-13 15:17] LABS: ARTERIAL BLD GAS O2 SATURATION 92.9 % (90.0-100.0); ARTERIAL BLOOD GAS HCO3 27.9 mmol/L; ARTERIAL BLOOD GAS MET HB 0.9 %sat (0.0-2.0); ARTERIAL BLOOD GAS PCO2 42.8 mmHg (35.0-45.0); ARTERIAL BLOOD GAS pH 7.423 (7.350-7.450)
[2017-03-13 15:18] LABS: ARTERIAL BLOOD GAS ALLEN TEST NORMAL; ARTERIAL BLOOD GAS ART SITE RIGHT RADIAL; ARTERIAL BLOOD GAS DELIVERY NASAL CANNULA; ARTERIAL BLOOD GAS PO2 70.6 mmHg (80.0-100); ARTERIAL DRAW? YES
[2017-03-14 05:55] LABS: BASOPHIL# 0.1 X10e3 (0-0.3); BASOPHIL% 1.1 % (0-2.5); HEMATOCRIT 28.8 % (35.0-45.0); HEMOGLOBIN 9.2 gm/dL (12.0-16.0); LYMPHOCYTE# 0.3 X10e3 (1.0-3.5); LYMPHOCYTE% 3.3 % (17.0-45.0); MEAN CELL VOLUME 86.7 FL (83-96); MEAN CORPUSCULAR HEMOGLOBIN 27.7 PG (28-34); MEAN PLATELET VOLUME 8.3 FL (6.5-11.5); MONOCYTE# 0.2 X10e3 (0-1.0); MONOCYTE% 2.7 % (3.0-12.0); NEUTROPHIL# 8.5 X10e3 (1.5-7.1); NEUTROPHIL% 92.9 % (40-75); PLATELET COUNT 103 X10e3 (140-420); RED BLOOD COUNT 3.32 X10e (3.90-5.30); RED CELL DISTRIBUTION WIDTH 19.6 % (11.0-15.5); WHITE BLOOD COUNT 9.2 X10e3 (4.0-10.5)
[2017-03-14 06:08] LABS: ALBUMIN SERUM 1.9 g/dL (3.5-5.0); MAGNESIUM 2.1 mg/dL (1.6-3.0); URIC ACID 7.4 mg/dL (2.6-7.2)
[2017-03-14 06:10] LABS: BUN/CREATININE RATIO 52.72; CALCIUM SERUM 6.9 mg/dL (8.4-10.2); CREATININE SERUM 1.1 mg/dL (0.6-1.4); GLOM FILT RATE Estimated 51.9 mL/min (>60); POTASSIUM 3.7 mmol/L (3.5-5.1)
[2017-03-14 06:14] LABS: DIFF IND NO
[2017-03-15 04:35] LABS: BASOPHIL# 0.1 X10e3 (0-0.3); BASOPHIL% 0.8 % (0-2.5); EOSINOPHIL% 0.2 % (0.0-7.0); HEMATOCRIT 30.2 % (35.0-45.0); HEMOGLOBIN 9.6 gm/dL (12.0-16.0); LYMPHOCYTE# 0.3 X10e3 (1.0-3.5); LYMPHOCYTE% 4.1 % (17.0-45.0); MEAN CELL VOLUME 86.5 FL (83-96); MEAN CORPUSCULAR HEMOGLOBIN 27.5 PG (28-34); MEAN CORPUSCULAR HGB CONC 31.8 g/dL (30-36); MEAN PLATELET VOLUME 8.7 FL (6.5-11.5); MONOCYTE# 0.3 X10e3 (0-1.0); MONOCYTE% 3.2 % (3.0-12.0); NEUTROPHIL# 7.2 X10e3 (1.5-7.1); NEUTROPHIL% 91.7 % (40-75); PLATELET COUNT 101 X10e3 (140-420); RED BLOOD COUNT 3.49 X10e (3.90-5.30); WHITE BLOOD COUNT 7.9 X10e3 (4.0-10.5)
[2017-03-15 04:36] LABS: DIFF IND NO; INR 1.1; PARTIAL THROMBOPLASTIN TIME 24.1 SECONDS (23.5-31.3); PROTHROMBIN TIME (PATIENT) 11.8 SECONDS (10.0-11.7)
[2017-03-15 07:13] LABS: DIFF IND NO; EOSINOPHIL% 0.2 % (0.0-7.0); HEMATOCRIT 32.7 % (35.0-45.0); HEMOGLOBIN 10.6 gm/dL (12.0-16.0); LYMPHOCYTE# 0.4 X10e3 (1.0-3.5); MEAN CELL VOLUME 86.3 FL (83-96); MEAN CORPUSCULAR HGB CONC 32.5 g/dL (30-36); MONOCYTE# 0.3 X10e3 (0-1.0); MONOCYTE% 2.8 % (3.0-12.0); NEUTROPHIL# 9.9 X10e3 (1.5-7.1); PLATELET COUNT 110 X10e3 (140-420); RED BLOOD COUNT 3.79 X10e (3.90-5.30); RED CELL DISTRIBUTION WIDTH 19.9 % (11.0-15.5); WHITE BLOOD COUNT 10.6 X10e3 (4.0-10.5)
[2017-03-15 07:43] LABS: CALCIUM SERUM 7.4 mg/dL (8.4-10.2); GLOM FILT RATE Estimated 58.3 mL/min (>60); POTASSIUM 3.4 mmol/L (3.5-5.1)
[2017-03-15 21:04] LABS: ARTERIAL BLD GAS O2 SATURATION 94.6 % (90.0-100.0); ARTERIAL BLOOD GAS CARBOXY HB 1.5 %sat (0.0-9.0); ARTERIAL BLOOD GAS MET HB 0.8 %sat (0.0-2.0); ARTERIAL BLOOD GAS PCO2 37.3 mmHg (35.0-45.0); ARTERIAL BLOOD GAS pH 7.514 (7.350-7.450)
[2017-03-15 21:05] LABS: ARTERIAL BLOOD GAS ALLEN TEST NORMAL; ARTERIAL BLOOD GAS ART SITE RIGHT RADIAL; ARTERIAL BLOOD GAS DELIVERY NASAL CANNULA; ARTERIAL DRAW? YES
[2017-03-16 06:44] LABS: CALCIUM SERUM 7.7 mg/dL (8.4-10.2); GLOM FILT RATE Estimated 58.3 mL/min (>60)
== END 2017-03-16 16:38 | DRG 166 ==
LOC: CED 14:10 → CEDOF 18:10 → CICCU3 18:10 → C3A PCU 18:10 → CED 18:33 → CEDOF 18:33 → C3A PCU 18:33 → CEDOF 20:36 → C3A PCU 20:36 → CICCU3 03-08 08:12 → CICCU2 03-09 17:05 → CICCU3 03-10 00:28 → C3A PCU 03-14 18:53
PROVIDERS: Emergency Medicine; Hospitalist; Internal Medicine; Internal Medicine Gastroenterology; Internal Medicine Hematology; Internal Medicine Hematology & Oncology; Internal Medicine Nephrology; Internal Medicine Pulmonary Disease; Physician Assistant Medical; Surgery
PROC: B32TYZZ Computerized Tomography (CT Scan) of Left Pulmonary Artery using Other Contrast (ICD-10-PCS; 2017-03-06)
PROC: B32SYZZ Computerized Tomography (CT Scan) of Right Pulmonary Artery using Other Contrast (ICD-10-PCS; 2017-03-06)
PROC: 5A1955Z Respiratory Ventilation, Greater than 96 Consecutive Hours (ICD-10-PCS; principal; 2017-03-08)
PROC: 0B9D8ZX Drainage of Right Middle Lung Lobe, Via Natural or Artificial Opening Endoscopic, Diagnostic (ICD-10-PCS; 2017-03-09 09:40)
PROC: B24BZZZ Ultrasonography of Heart with Aorta (ICD-10-PCS; 2017-03-10)
PROC: 02HV33Z Insertion of Infusion Device into Superior Vena Cava, Percutaneous Approach (ICD-10-PCS; 2017-03-10)
PROC: B548ZZA Ultrasonography of Superior Vena Cava, Guidance (ICD-10-PCS; 2017-03-10)
PROC: 0DB78ZX Excision of Stomach, Pylorus, Via Natural or Artificial Opening Endoscopic, Diagnostic (ICD-10-PCS; 2017-03-15)
DX: J96.01 Acute respiratory failure with hypoxia (principal); J15.211 Pneumonia due to Methicillin susceptible Staphylococcus aureus; N17.9 Acute kidney failure, unspecified; J91.0 Malignant pleural effusion; E87.0 Hyperosmolality and hypernatremia; C78.00 Secondary malignant neoplasm of unspecified lung; K29.71 Gastritis, unspecified, with bleeding; C78.7 Secondary malignant neoplasm of liver and intrahepatic bile duct; R13.10 Dysphagia, unspecified; J44.0 Chronic obstructive pulmonary disease with (acute) lower respiratory infection; J44.1 Chronic obstructive pulmonary disease with (acute) exacerbation; C79.51 Secondary malignant neoplasm of bone; N39.0 Urinary tract infection, site not specified; D69.6 Thrombocytopenia, unspecified; E11.65 Type 2 diabetes mellitus with hyperglycemia; D63.8 Anemia in other chronic diseases classified elsewhere; Z85.3 Personal history of malignant neoplasm of breast; Z90.10 Acquired absence of unspecified breast and nipple; Z79.84 Long term (current) use of oral hypoglycemic drugs; Z82.5 Family history of asthma and other chronic lower respiratory diseases; R00.0 Tachycardia, unspecified; E87.6 Hypokalemia; Z88.5 Allergy status to narcotic agent; Z87.891 Personal history of nicotine dependence; E78.5 Hyperlipidemia, unspecified; E66.9 Obesity, unspecified; Z68.39 Body mass index [BMI] 39.0-39.9, adult; G47.30 Sleep apnea, unspecified; M06.9 Rheumatoid arthritis, unspecified; I50.9 Heart failure, unspecified; Z66 Do not resuscitate
CPT/HCPCS: 36600; 71010; 71275; 74000; 74230; 76770; 80048; 80053; 80076; 81003; 82040; 82308; 82533; 82553; 82607; 82728; 82803; 82947; 83540; 83550; 83605; 83735; 83880; 84100; 84443; 84484; 84550; 85025; 85027; 85610; 85730; 87040; 87070; 87077; 87086; 87102; 87116; 87186; 87205; 87206; 87252; 87254; 87278; 87449; 87633; 87899; 88108; 88305; 88312; 89051; 89190; 92611; 93005; 93306; 93971; 94002; 94003; 94640; 94660; 94664; 94760; 94761; 96374; 96375; 97162; 97166; 97530; 99291; C9113; G8978-GP; G8979-GP; G8987-GO; G8988-GO; G8996-GN; G8997-GN; G8998-GN; J0171; J1650; J1815; J1940; J2250; J2270; J2543; J2920; J2930; J3010; J3370; J9045; Q9967

== ENCOUNTER 2017-03-16 16:58 | Inpatient (IN) | payer OTHER ==
[~2017-03-16 16:58] MED LIST changes: +(NONE)2.5 MG PO; +ACID REDUCER20 MG PO; +ALBUTEROL17 GM INH; +AMITIZA24 MCG PO; +LOMOTIL WHITE2.5 M1 PO; +METFORMIN PO; +PREDNISONE PO; +ZANAFLEX PO; +ZOFRAN8 MG PO
== END 2017-03-21 09:10 | disposition expired | DRG 177 ==
LOC: C3A PCU 16:58
DX: J15.211 Pneumonia due to Methicillin susceptible Staphylococcus aureus (principal); J96.90 Respiratory failure, unspecified, unspecified whether with hypoxia or hypercapnia; N17.9 Acute kidney failure, unspecified; J91.0 Malignant pleural effusion; C50.919 Malignant neoplasm of unspecified site of unspecified female breast; E11.9 Type 2 diabetes mellitus without complications; D64.9 Anemia, unspecified; I10 Essential (primary) hypertension; Z51.5 Encounter for palliative care
CPT/HCPCS: 94640; 94760; J2060; J2270